=== PATIENT | male | born 1985 | race African-American/Black ===

== ENCOUNTER 2020-03-30 11:35 | Inpatient (IN) | payer SELFPAY ==
[2020-03-30] MEDS ORDERED: Enoxaparin Sodium 100 MG/ML SYRINGE ONE ×2 (11:53→11:55)
[2020-03-30] MEDS ORDERED: Enoxaparin Sodium 60 MG/0.6 ML SYRINGE ONE ×2 (11:53→11:55)
[2020-03-30] MEDS ORDERED: Digoxin 0.5 MG/2 ML AMP ONE (11:53)
[2020-03-30] MEDS ORDERED: Aspirin Chewable 81 MG TAB ONE (11:53)
[2020-03-30] MEDS ORDERED: Magnesium 2 GM/50 ML BAG (IN WATER) ONE (11:53)
--- NOTE | 2020-03-30 12:28 | RAD ---
PORTABLE CHEST: HISTORY: Syncopal episode. COMPARISON: Earlier exam of the same day. FINDINGS: Heart size is enlarged. Pulmonary vessels are mildly engorged, but no overt edema. IMPRESSION: Marked cardiomegaly. Stable chest. POS: AH
[2020-03-30 12:31] LABS: #Basophils 0.1 thou/uL (0.0-0.2); #Eosinphils 0.1 thou/uL (0.0-0.7); #Lymphocytes 3.3 thou/uL (1.20-3.40); #Monocytes 0.8 thou/uL (0.11-0.59); #Neutrophils 6.6 thou/uL (1.40-6.50); %Basophils 0.8 % (0.0-1.0); %Eosinophils 0.8 % (0.0-10.0); %Monocytes 7.6 % (0.0-10.0); %Neutrophils 60.8 % (42.0-75.0); Hemoglobin 14.1 g/dL (14.0-18.0); Mean Corpuscular HGB CONC 31.8 g/dL (32.0-36.0); Mean Corpuscular Hemoglobin 31.7 pg (27.0-31.0); Mean Corpuscular Volume 99.7 fL (78.0-98.0); Mean Platelet Volume 7.8 fL (7.4-10.4); Platelet Count 295 thou/uL (130-400); RBC Distribution Width 14.1 % (11.5-14.5); Red Blood Cell (RBC) Count 4.44 mill/uL (4.70-6.10); White Blood Cell (WBC) Count 10.8 thou/uL (4.8-10.8)
[2020-03-30 13:14] LABS: CKMB 1.5 ng/mL (0-6.6)
[2020-03-30 13:32] LABS: Anion Gap 21 mmol/L (10-20); BUN (Urea Nitrogen) 39 mg/dL (8.9-20.6); Calc. Creatinine Clearance 0 mL/min (70-130); Carbon Dioxide 24 mmol/L (22-29); Chloride 99 mmol/L (98-107); Potassium 5.1 mmol/L (3.5-5.1); Sodium 139 mmol/L (136-145)
[2020-03-30 13:33] LABS: ALT (SGPT) 11 U/L (8-55); AST (SGOT) 28 U/L (5-34); Albumin 3.9 g/dL (3.5-5.0); Alkaline Phosphatase 78 U/L (40-110); Bilirubin, Total 1.1 mg/dL (0.2-1.2); CK (CPK) 124 U/L (30-200); Calcium 8.8 mg/dL (7.8-10.44); Globulin 3.5 g/dL (2.4-3.5); Glucose 82 mg/dL (70-105); Lipase 32 U/L (8-78); Protein, Total 7.4 g/dL (6.0-8.3)
[2020-03-30] MEDS ORDERED: Senokot S 8.6-50 MG TAB PO PRN (14:48)
[2020-03-30] MEDS ORDERED: Bisacodyl 10 MG SUPP PR PRN (14:48)
[2020-03-30] MEDS ORDERED: Cepastat Lozenges 1 LOZ PO PRN (14:48)
[2020-03-30] MEDS ORDERED: Sodium Chloride 0.65% Nasal 44 ML BOT EA NARE PRN (14:48)
[2020-03-30] MEDS ORDERED: Zolpidem Tartrate 5 MG TAB PO PRN (14:48)
[2020-03-30] MEDS ORDERED: Acetaminophen 325 MG TAB PO PRN (14:48)
[2020-03-30] MEDS ORDERED: Loratadine 10 MG TAB PO PRN (14:48)
[2020-03-30] MEDS ORDERED: hydrALAZINE 20 MG/ML VIAL SLOW IVP PRN (14:48)
[2020-03-30] MEDS ORDERED: Guaifenesin DM 100-10/5 ML UDCUP PO PRN (14:48)
[2020-03-30] MEDS ORDERED: Metoclopramide HCl 10 MG/2 ML VIAL IVP PRN (14:48)
[2020-03-30] MEDS ORDERED: HYDROcodone/Acetaminophen 5/325 mg Tablet PO PRN (14:48)
[2020-03-30] MEDS ORDERED: Loperamide HCl 2 MG CAP PO PRN (14:48)
[2020-03-30] MEDS ORDERED: Calcium Carbonate 500 MG ChewTAB PO PRN (14:48)
--- NOTE | 2020-03-30 15:20 | HP ---
PRIMARY CARE PHYSICIAN: [facility] Call admission. REASON FOR ADMISSION: Transferred from [facility] for syncopal episode with atrial fibrillation with RVR. HISTORY OF PRESENT ILLNESS: A 34-year-old male, who has underlying history of chronic systolic heart failure, who went to [facility] for a syncopal episode. The patient reports that for last 3 to 4 days, he was experiencing dizziness and nausea whenever he was standing rapidly, the patient was also feeling sensation in his throat as he had something stuck in his throat. This morning when he was feeling this type of sensation, he tried to drink water and he vomited, subsequently he passed out. He was also having palpitation and dizziness. He denies any chest pain currently, he denies any shortness of breath, he does not have any previous history of atrial fibrillation, the patient has a diagnosis of systolic heart failure with EF 25%, the patient is following Cardiology, the patient is compliant with his medication. The patient was evaluated at [facility] and he was relatively having low blood pressure, he was treated with metoprolol tartrate and his rate was controlled, but his blood pressure was low, so in our emergency room, the patient was given digoxin. When I saw at that time, the patient's heart rate was variable, it was going from 90 to 120. At [facility], the patient was also given Zofran and IV fluid. PAST MEDICAL HISTORY: Chronic systolic heart failure, morbid obesity, hypertension. PAST SURGICAL HISTORY: Reviewed and negative. PAST PSYCHIATRIC HISTORY: Reviewed and negative. SOCIAL HISTORY: The patient lives at home with family, he drinks alcohol socially twice a month, he also smokes cigar daily about one pack per day, he is trying to quit, but has not quit yet. ALLERGIES: NO KNOWN DRUG ALLERGY. CURRENT HOME MEDICATIONS: 1. Lasix 40 mg twice daily. 2. Metoprolol 50 mg twice daily. 3. Albuterol inhaler as needed basis, we will start on 80 mg p.o. daily. EMERGENCY ROOM COURSE: The patient is given metoprolol 5 mg IV x3 doses, as well as Zofran and IV fluid at other emergency room and the patient is given digoxin in our emergency room. PHYSICAL EXAMINATION: VITAL SIGNS: Currently blood pressure 120/86, pulse 126 and irregular, respiratory rate 18, temperature 98.2, saturation 98% on room air. GENERAL: The patient is currently alert, awake, no acute distress. HEENT: Head; normocephalic, atraumatic. NECK: Supple. No JVD. No meningeal signs of irritation. LUNGS: Clear to auscultation without any obvious rhonchi or rales. CARDIAC: S1 and S2. Irregularly irregular, no murmur. No gallop. No rub. ABDOMEN: Morbid obesity limiting examination. No peritoneal sign, no guarding, no rigidity, no rebound. BACK: Unremarkable. No CVA tenderness. EXTREMITIES: Upper extremities, passive movement of all joints are normal. Lower extremity; bilateral lower extremity pitting edema 1+ noted. SKIN: No skin rash, chronic skin changes in lower extremity. PSYCHIATRIC: Normal affect. NEUROLOGIC: The patient is alert and oriented x3, cranial nerves all normal, motor and sensation within normal limits. PSYCHIATRIC: Normal affect. REVIEW OF SYSTEMS: All review of systems reviewed and negative except as mentioned in HPI. SIGNIFICANT LABORATORY DATA: EKG showing atrial fibrillation with RVR, chest x- ray showing cardiomegaly. CBC; WBC 10.0, hemoglobin 14.5, platelet 282. D-dimer 1.55. BMP; sodium 139, potassium 3.7, chloride 96, carbon dioxide 30, anion gap was 17, BUN 36, creatinine 2.17, glucose 96, calcium 9.2. LFT; AST 16, ALT 13, alkaline phosphatase 74, albumin 3.8. CK 124, CK-MB 1.9, troponin 0.103, BNP 857. ASSESSMENT/PLAN: 1. Atrial fibrillation with rapid ventricular response, the patient has new onset atrial fibrillation, the patient has underlying history of cardiomyopathy, the patient will need amiodarone drip given low blood pressure. We will consult Cardiology. We will start Lovenox 1 mg/kg subcu twice daily. We will check TSH. 2. Acute/chronic kidney failure. The patient has worsening of renal function. The patient has baseline chronic kidney disease stage 3, most likely cardiorenal syndrome, we will continue to monitor renal function. 3. Type 2 myocardial infarction, likely due to atrial fibrillation with rapid ventricular response, demand ischemia, we will do serial cardiac enzymes x3, will continue aspirin 325 mg p.o. daily. Check lipid profile tomorrow, continue Lipitor 40 mg p.o. at bedtime. 4. Chronic systolic heart failure with mild acute exacerbation, the patient will be monitored closely, will continue with Lasix 40 mg p.o. daily. Because of renal insufficiency, the patient is not a candidate for CYNTHIA inhibitor or ARB at this point, especially the patient has low blood pressure. If blood pressure permits, then we will resume Toprol-XL long-acting. 5. Morbid obesity with possible sleep apnea. The patient will need outpatient sleep study to rule out sleep apnea. 6. Morbid obesity. Dietary education given. Weight loss education given. 7. Deep venous thrombosis prophylaxis. The patient will be given full dose of Lovenox. 8. GI prophylaxis. Pepcid 20 mg p.o. twice daily. CODE STATUS: The patient is full code. DISPOSITION PLAN: Based on clinical course, plan of care discussed with the patient and family member at bedside. Job ID: [id number] MTDD
[2020-03-30 16:55] LABS: Troponin I 0.156 ng/mL (< 0.028)
[2020-03-30] MEDS: Amiodarone 450 MG in Dextrose 5% in Water 250 ML IVPB SCH (18:10)
[2020-03-30 19:29] LABS: Troponin I 0.151 ng/mL (< 0.028)
--- NOTE | 2020-03-30 19:59 | CON ---
DATE OF CONSULTATION: 03/30/2020 INDICATION FOR CONSULTATION: A 34-year-old patient with new onset atrial fibrillation with a history of congestive heart failure. HISTORY OF PRESENT ILLNESS: This is a very unfortunate 34-year-old gentleman who has been followed by Dr. Rush in the past, has a history of chronic systolic heart failure of uncertain etiology. He had significant volume overload, was being treated with diuretics and also Zaroxolyn was added. In the last several days, he has been complaining of lightheadedness and feeling somewhat nauseous. This morning, he became very nauseated, he threw up and then after that he had an episode of syncope, was out for just a couple of seconds. His then took him to the emergency room. He was transferred from the emergency room of [place] to our facility here. He does have a history of systolic heart failure with ejection fraction of 25% by echocardiogram performed in the office. Apparently, he has been very compliant with his medications. He was noted to be hypotensive in the emergency room and was given IV fluids. Originally, his blood pressure was 84/69. This time, it is in the low 100s to one teens systolically. His heart rate is in the 100s to one teens with atrial fibrillation. He denied any chest pain. His was close by when he fell. She heard him fall with a syncopal episode but did not actually witness this, but states he was only out for a couple of seconds. At this time, he is stable and has no symptoms. The nausea has improved. PAST MEDICAL HISTORY: Significant for congestive heart failure, which is chronic in nature systolically, morbid obesity, hypertension. SOCIAL HISTORY: He lives with his . He drinks alcohol socially about 2 to 3 times a month. He smokes cigars daily, he says about a pack a day. ALLERGIES: NONE. MEDICATIONS: Prior to admission included 1. Furosemide 40 mg b.i.d. 2. Metoprolol 50 mg twice a day. 3. Valsartan 80 mg once a day. 4. Metolazone 5 mg once a day. This has been held as he called the office yesterday, was suggested that he stop taking the medicine since he was hypotensive and felt badly. FAMILY HISTORY: His mother has hypertension. Father from cancer. REVIEW OF SYSTEMS: A 12-point review of systems was unremarkable except as noted in the history of present illness. PHYSICAL EXAMINATION: GENERAL: Well-developed gentleman. He is morbidly obese. VITAL SIGNS: His blood pressure at this time is 130/59, heart rate is in the one teens. He is afebrile. Respiratory rate 16, O2 saturation 95%. HEENT: Shows the head to be normocephalic and atraumatic. NECK: Carotid pulses are present. I did not hear any bruits. There was no JVD noted. CHEST: Sounds clear to auscultation. CARDIOVASCULAR: Irregularly irregular rhythm. Heart sounds are somewhat distant but he is a morbidly obese patient. I do not hear any gross murmurs, heaves, thrills, bruits, or rubs. ABDOMEN: Shows obesity. I cannot elicit any tenderness or masses. EXTREMITIES: Showed no clubbing. He does have 1 to 2+ lower extremity edema. Pedal pulses are difficult to palpate but are present. NEUROLOGIC: The patient appears to be fully intact. LABORATORY DATA: Shows a WBC of 10.8, hemoglobin 14.1, platelet count was 295,000. Sodium is 139 with a potassium of 5.1, BUN was 39 with a creatinine of 2.4. Troponin I was slightly elevated at 0.15. BNP was elevated at 765. Also EKG shows atrial fibrillation with a rapid ventricular response. There were no acute ST-segment changes noted to indicate ischemia. IMPRESSION: 1. New onset atrial fibrillation with rapid ventricular response, which most likely caused hypotension and thus a syncopal episode. We will need to control the heart rate. We will try to increase the beta-blockers or add digoxin if necessary to control the heart rate. 2. History of systolic heart failure. We will need to repeat the echocardiogram to determine whether or not the ejection fraction has deteriorated further. Certainly with atrial fibrillation, he may have deteriorated further. He may become a candidate for an AICD if his heart function is still significantly decreased. I believe his diagnosis was back in December of this year. I think he has not seen Dr. Rush in the office since then but has had a couple tele-med visits with him. Consider starting Entresto. 3. History of significant edema which is associated with his heart failure. He has been somewhat noncompliant with fluids in his diet in the last few days over the holiday season. 4. Slight elevation in the cardiac enzymes, which could indicate a type 2 myocardial infarction due to the heart failure and congestive heart failure, which would cause this. His BNP was significantly elevated at 765. 5. Morbid obesity with possible sleep apnea. He should be advised to try to have some dietary control and try to lose some weight. We are more than happy to continue to follow the patient with you. Also please note, he has acute renal insufficiency which may be due to over-diuresis. He may need to be started on inotropic support in order to diurese the patient. Further recommendations will depend on the results of the echocardiogram. Job ID: [id number] [facility]
[2020-03-30] MEDS ORDERED: Famotidine 20 MG TAB PO SCH (21:00)
[2020-03-30] MEDS: Enoxaparin Sodium 80 MG/0.8 ML SYRINGE SC SCH (21:09)
[2020-03-30] MEDS: Atorvastatin Calcium 40 MG TAB PO SCH (21:11)
[2020-03-30 21:28] LABS: SARS-CoV-2 MS2 Positive; SARS-CoV-2 N Gene Negative; SARS-CoV-2 S Gene Negative; SARS-CoV-2 by NAA Not Detected (NotDetected); SARS-CoV-2 orf1ab Negative
[2020-03-30 23:21] LABS: Bacteria/HPF None Seen HPF (None Seen); Bilirubin Negative (Negative); Blood, Urine Negative (Negative); Clarity Clear (Clear); Glucose, Urine (Dipstick) Normal (Negative); Ketone, Urine Negative (Negative); Leukocyte Negative Leu/uL (Negative); Nitrite Negative (Negative); Protein, Urine (Dipstick) 70 mg/dL (Neg-Trace); RBC/HPF 0-3 HPF (0-3); Specific Gravity, Urine 1.017 (1.002-1.036); Squamous Epithelial 0-3 HPF (0-3); Urobilinogen 3 mg/dL (Less than 2); WBC/HPF 0-3 HPF (0-3)
[2020-03-30 23:23] LABS: Urine Culture Reflex No No
[2020-03-30 23:26] LABS: Amphetamine Not Detected (NotDetected); Barbiturates Screen Not Detected (NotDetected); Benzodiazepine Screen Not Detected (NotDetected); Cocaine Metabolite Screen Not Detected (NotDetected); Medtox Control Line Valid? VALID (VALID); Medtox Reader # READER 1; Methadone Not Detected (NotDetected); Methamphetamine Not Detected (NotDetected); Opiate Screen Not Detected (NotDetected); Oxycodone Screen Not Detected (NotDetected); Phencyclidine (PCP) Not Detected (NotDetected); THC/Cannabinoid Screen Not Detected (NotDetected); Tricyclic Screen Not Detected (NotDetected)
[2020-03-31 05:04] LABS: ALT (SGPT) 8 U/L (8-55); AST (SGOT) 12 U/L (5-34); Albumin 3.7 g/dL (3.5-5.0); Alkaline Phosphatase 76 U/L (40-110); Anion Gap 15 mmol/L (10-20); BUN (Urea Nitrogen) 45 mg/dL (8.9-20.6); Bilirubin, Total 0.9 mg/dL (0.2-1.2); Calc. Creatinine Clearance 92 mL/min (70-130); Calcium 8.8 mg/dL (7.8-10.44); Carbon Dioxide 31 mmol/L (22-29); Cardiac Risk 3.8 (Less than 4.5); Chloride 97 mmol/L (98-107); Cholesterol 125 mg/dl (< 200 Desired); Globulin 3.3 g/dL (2.4-3.5); Glucose 96 mg/dL (70-105); HDL Cholesterol 33 mg/dL (>60 Neg Risk); LDL Cholesterol, Calculated 74 mg/dL; Magnesium 2.4 mg/dL (1.6-2.6); Potassium 3.9 mmol/L (3.5-5.1); Sodium 139 mmol/L (136-145); Triglycerides 88 mg/dL (Less than 150); Uric Acid 16.2 mg/dL (3.5-7.2)
[2020-03-31 05:42] LABS: Hemoglobin 13.7 g/dL (14.0-18.0); Mean Corpuscular HGB CONC 30.5 g/dL (32.0-36.0); Mean Corpuscular Hemoglobin 30.6 pg (27.0-31.0); Mean Platelet Volume 7.5 fL (7.4-10.4); Platelet Count 293 thou/uL (130-400); RBC Distribution Width 14.5 % (11.5-14.5); Red Blood Cell (RBC) Count 4.46 mill/uL (4.70-6.10); White Blood Cell (WBC) Count 9.4 thou/uL (4.8-10.8)
[2020-03-31 06:37] LABS: Eosinophils 1 % (0-10); Lymphocytes 33 % (21-51); MDiff Complete? YES; Monocytes 6 % (0-10); Neutrophil 57 % (42-75); Reactive Lymphocytes 3 % (0-10)
[2020-03-31] MEDS: Aspirin Chewable 81 MG TAB PO SCH (08:12)
[2020-03-31] MEDS: Enoxaparin Sodium 80 MG/0.8 ML SYRINGE SC SCH ×2 (08:12→21:13)
[2020-03-31] MEDS: Furosemide 40 MG TAB PO SCH (08:12)
[2020-03-31] MEDS: Allopurinol 100 MG TAB PO SCH (10:03)
--- NOTE | 2020-03-31 12:50 | PDOC.HOSPP ---
- Subjective Encounter Date: 03/31/20 Encounter Time: 08:00 Subjective: Patient seen and examined bedside today, patient has no chest pain, no shortness of breath, his heart rate is under control, he is on amiodarone drip, his blood pressure runs low side, - Objective Vital Signs & Weight: Vital Signs (12 hours) Temp Pulse Resp BP Pulse Ox 03/31/20 11:40 100/60 03/31/20 11:17 97.8 F 105 H 15 95 03/31/20 08:00 97.6 F 105 H 17 95/55 L 93 L 03/31/20 04:00 98.1 F 109 H 16 102/78 95 Weight Weight 358 lb Result Diagrams: 03/31/20 04:22 03/31/20 04:22 EKG Reviewed by me: Yes (Ankita canales) Hospitalist ROS - Review of Systems Constitutional: reports: weakness. denies: fever, chills, sweats, malaise, other ENT: denies: ear pain, ear discharge, nose pain, nose discharge, nose congestion, mouth pain, mouth swelling, throat pain, throat swelling, other Respiratory: denies: cough, dry, shortness of breath, hemoptysis, SOB with excertion, pleuritic pain, sputum, wheezing, other Cardiovascular: denies: chest pain, palpitations, orthopnea, paroxysmal noc. dyspnea, edema, light headedness, other Gastrointestinal: denies: nausea, vomiting, abdominal pain, diarrhea, constipation, melena, hematochezia, other Genitourinary: denies: dysuria, frequency, incontinence, hematuria, retention, other Musculoskeletal: denies: neck pain, shoulder pain, arm pain, back pain, hand pain, leg pain, foot pain, other Skin: denies: rash, lesions, karthikeyan, bruising, other - Medication Medications: Active Medications Generic Name Dose Route Start Last Admin Trade Name Freq PRN Reason Stop Dose Admin Acetaminophen 650 mg 03/30/20 14:48 03/30/20 21:11 Acetaminophen 325 Mg Tab PO 650 mg Q4H PRN Administration Headache/Fever/Mild Pain (1-3) Allopurinol 100 mg 03/31/20 09:00 03/31/20 10:03 Allopurinol 100 Mg Tab PO 100 mg DAILY CLINT Administration Aspirin 81 mg 03/31/20 09:00 03/31/20 08:12 Aspirin Chewable 81 Mg Tab PO 81 mg DAILY CLINT Administration Atorvastatin Calcium 40 mg 03/30/20 21:00 03/30/20 21:11 Atorvastatin Calcium 40 Mg Tab PO 40 mg HS CLINT Administration Enoxaparin Sodium 160 mg 03/30/20 21:00 03/31/20 08:12 Enoxaparin Sodium 80 Mg/0.8 Ml Syringe SC 160 mg 0900,2100 CLINT Administration Furosemide 40 mg 03/31/20 07:30 03/31/20 08:12 Furosemide 40 Mg Tab PO 40 mg DAILY-AC CLINT Administration Amiodarone HCl 450 mg/ 259 mls @ 0 mls/hr 03/30/20 14:48 03/30/20 18:10 Dextrose/Water IVPB 259 mls INF CLINT Administration Protocol Per Protocol Pantoprazole Sodium 40 mg 03/31/20 09:00 03/31/20 08:12 Pantoprazole 40 Mg Tab PO 40 mg DAILY CLINT Administration - Exam General Appearance: NAD, awake alert Eye: PERRL, anicteric sclera ENT: normocephalic atraumatic, no oropharyngeal lesions Neck: supple, symmetric, no JVD, no thyromegaly Heart: no murmur, no gallops, no rubs, irregular Respiratory: no wheezes, no rales, no ronchi Respiratory - other findings: Morbid obesity limiting examination Gastrointestinal: soft, non-tender, non-distended, normal bowel sounds Gastrointestinal - other findings: Morbid obesity noted Extremities: no cyanosis, no clubbing, 1+ LE edema Skin: normal turgor, no lesions Neurological: no focal deficits Musculoskeletal: normal tone, normal strength, no muscle wasting Psychiatric: normal affect, normal behavior, A&O x 3 Hosp A/P (1) Atrial fibrillation with rapid ventricular response Code(s): I48.91 - UNSPECIFIED ATRIAL FIBRILLATION Status: Acute (2) Acute on chronic systolic CHF (congestive heart failure) Code(s): I50.23 - ACUTE ON CHRONIC SYSTOLIC (CONGESTIVE) HEART FAILURE Status: Acute (3) Acute renal failure superimposed on chronic kidney disease Code(s): N17.9 - ACUTE KIDNEY FAILURE, UNSPECIFIED; N18.9 - CHRONIC KIDNEY DISEASE, UNSPECIFIED Status: Acute Qualifiers: Acute renal failure type: unspecified Chronic kidney disease stage: stage 3 (moderate) Chronic kidney disease stage 3 subtype: stage 3a (GFR 45-59) Qualified Code(s): N17.9 - Acute kidney failure, unspecified; N18.31 - Chronic kidney disease, stage 3a (4) Morbid obesity with BMI of 45.0-49.9, adult Code(s): E66.01 - MORBID (SEVERE) OBESITY DUE TO EXCESS CALORIES; Z68.42 - BODY MASS INDEX [BMI] 45.0-49.9, ADULT Status: Chronic (5) Hyperuricemia Code(s): E79.0 - HYPERURICEMIA W/O SIGNS OF INFLAM ARTHRIT AND TOPHACEOUS DIS Status: Chronic - Plan old records reviewed/req, plan discussed w/ family Continue amiodarone drip Patient's renal function is elevated which is related with cardiorenal syndrome Patient has low blood pressure so we are not able to prescribe ARB, and patient is allergic to CYNTHIA inhibitor Because of elevated uric acid we will start allopurinol 100 mg daily Echocardiography result is pending Cardiology following We will consider starting oral anticoagulation given high chads 2 score, continue Lovenox for now We will repeat labs tomorrow
[2020-03-31 15:10] VITALS: BMI 47.2
[2020-03-31] MEDS: DOBUTamine 500 mg/250 ml 250 ML IVPB SCH (17:59)
[2020-03-31] MEDS: Amiodarone 450 MG in Dextrose 5% in Water 250 ML IVPB SCH (18:31)
[2020-03-31] MEDS: Atorvastatin Calcium 40 MG TAB PO SCH (21:13)
[2020-04-01 04:45] LABS: #Basophils 0.1 thou/uL (0.0-0.2); #Eosinphils 0.1 thou/uL (0.0-0.7); #Lymphocytes 2.6 thou/uL (1.20-3.40); #Monocytes 0.7 thou/uL (0.11-0.59); #Neutrophils 6.5 thou/uL (1.40-6.50); %Basophils 1.3 % (0.0-1.0); %Eosinophils 0.7 % (0.0-10.0); %Lymphocytes 25.9 % (21.0-51.0); %Monocytes 7.3 % (0.0-10.0); %Neutrophils 64.8 % (42.0-75.0); Hemoglobin 12.9 g/dL (14.0-18.0); Mean Corpuscular HGB CONC 31.4 g/dL (32.0-36.0); Mean Corpuscular Hemoglobin 31.4 pg (27.0-31.0); Mean Platelet Volume 8.1 fL (7.4-10.4); Platelet Count 260 thou/uL (130-400); RBC Distribution Width 14.2 % (11.5-14.5)
[2020-04-01 05:07] LABS: Anion Gap 18 mmol/L (10-20); BUN (Urea Nitrogen) 45 mg/dL (8.9-20.6); Calc. Creatinine Clearance 109 mL/min (70-130); Calcium 8.8 mg/dL (7.8-10.44); Carbon Dioxide 28 mmol/L (22-29); Chloride 96 mmol/L (98-107); Glucose 81 mg/dL (70-105); Magnesium 2.4 mg/dL (1.6-2.6); Potassium 4.6 mmol/L (3.5-5.1); Sodium 137 mmol/L (136-145)
[2020-04-01] MEDS: Aspirin Chewable 81 MG TAB PO SCH (08:43)
[2020-04-01] MEDS: Furosemide 40 MG TAB PO SCH (08:43)
[2020-04-01] MEDS: Allopurinol 100 MG TAB PO SCH (08:43)
[2020-04-01] MEDS: Enoxaparin Sodium 80 MG/0.8 ML SYRINGE SC SCH ×2 (08:43→21:45)
[2020-04-01] MEDS: Amiodarone 450 MG in Dextrose 5% in Water 250 ML IVPB SCH (09:40)
--- NOTE | 2020-04-01 10:08 | PDOC.HOSPP ---
- Subjective Encounter Date: 04/01/20 Encounter Time: 08:30 Subjective: Patient seen and examined bedside today, patient has good diuretic response after starting dobutamine drip, patient has recurrent episode of NSVT though patient remains asymptomatic, - Objective Vital Signs & Weight: Vital Signs (12 hours) Temp Pulse Resp BP BP Pulse Ox 04/01/20 07:49 97.3 F L 98 17 120/80 96 04/01/20 05:45 98 04/01/20 04:05 122/80 04/01/20 04:00 97.7 F 100 14 98 04/01/20 00:00 132/78 Weight Admit Weight 357 lb Weight 357 lb Result Diagrams: 04/01/20 03:44 04/01/20 03:44 Radiology Reviewed by me: Yes (Echocardiography showed EF less than 10%) EKG Reviewed by me: Yes (Recurrent episode of NSVT noted) Hospitalist ROS - Review of Systems Constitutional: reports: weakness Respiratory: reports: shortness of breath. denies: cough, dry, hemoptysis, SOB with excertion, pleuritic pain, sputum, wheezing, other Cardiovascular: denies: chest pain, palpitations, orthopnea, paroxysmal noc. dyspnea, edema, light headedness, other Gastrointestinal: denies: nausea, vomiting, abdominal pain, diarrhea, constipation, melena, hematochezia, other Genitourinary: denies: dysuria, frequency, incontinence, hematuria, retention, other Musculoskeletal: denies: neck pain, shoulder pain, arm pain, back pain, hand pain, leg pain, foot pain, other Skin: denies: rash, lesions, karthikeyan, bruising, other - Medication Medications: Active Medications Generic Name Dose Route Start Last Admin Trade Name Freq PRN Reason Stop Dose Admin Acetaminophen 650 mg 03/30/20 14:48 03/30/20 21:11 Acetaminophen 325 Mg Tab PO 650 mg Q4H PRN Administration Headache/Fever/Mild Pain (1-3) Allopurinol 100 mg 03/31/20 09:00 04/01/20 08:43 Allopurinol 100 Mg Tab PO 100 mg DAILY CLINT Administration Aspirin 81 mg 03/31/20 09:00 04/01/20 08:43 Aspirin Chewable 81 Mg Tab PO 81 mg DAILY CLINT Administration Atorvastatin Calcium 40 mg 03/30/20 21:00 03/31/20 21:13 Atorvastatin Calcium 40 Mg Tab PO 40 mg HS CLINT Administration Calcium Carbonate 1,000 mg 03/30/20 14:48 04/01/20 03:39 Calcium Carbonate 500 Mg Chewtab PO 1,000 mg Q4H PRN Administration Heartburn or Indigestion Enoxaparin Sodium 160 mg 03/30/20 21:00 04/01/20 08:43 Enoxaparin Sodium 80 Mg/0.8 Ml Syringe SC 160 mg 0900,2100 CLINT Administration Furosemide 40 mg 03/31/20 07:30 04/01/20 08:43 Furosemide 40 Mg Tab PO 40 mg DAILY-AC CLINT Administration Amiodarone HCl 450 mg/ 259 mls @ 0 mls/hr 03/30/20 14:48 04/01/20 09:40 Dextrose/Water IVPB 259 mls INF CLINT Administration Protocol Per Protocol Dobutamine HCl/Dextrose 250 mls @ 12.179 mls/hr 03/31/20 17:15 03/31/20 17:59 Dobutamine 500 Mg/250 Ml IVPB 250 mls INF CLINT Administration Protocol 2.5 MCG/KG/MIN Pantoprazole Sodium 40 mg 03/31/20 09:00 04/01/20 08:43 Pantoprazole 40 Mg Tab PO 40 mg DAILY CLINT Administration - Exam General Appearance: NAD, awake alert Eye: PERRL, anicteric sclera ENT: normocephalic atraumatic, no oropharyngeal lesions Neck: symmetric, no thyromegaly Heart: no murmur, no gallops, no rubs, irregular Respiratory: no wheezes, no rales, no ronchi Respiratory - other findings: Morbid obesity limiting examination Gastrointestinal: soft, non-tender, non-distended, normal bowel sounds Extremities: no clubbing, 1+ LE edema Skin: normal turgor, no lesions Neurological: no focal deficits Musculoskeletal: normal tone, normal strength Psychiatric: normal affect, normal behavior Hosp A/P (1) Atrial fibrillation with rapid ventricular response Code(s): I48.91 - UNSPECIFIED ATRIAL FIBRILLATION Status: Acute (2) Acute on chronic systolic CHF (congestive heart failure) Code(s): I50.23 - ACUTE ON CHRONIC SYSTOLIC (CONGESTIVE) HEART FAILURE Status: Acute (3) Acute renal failure superimposed on chronic kidney disease Code(s): N17.9 - ACUTE KIDNEY FAILURE, UNSPECIFIED; N18.9 - CHRONIC KIDNEY DISEASE, UNSPECIFIED Status: Acute Qualifiers: Acute renal failure type: unspecified Chronic kidney disease stage: stage 3 (moderate) Chronic kidney disease stage 3 subtype: stage 3a (GFR 45-59) Qualified Code(s): N17.9 - Acute kidney failure, unspecified; N18.31 - Chronic kidney disease, stage 3a (4) Morbid obesity with BMI of 45.0-49.9, adult Code(s): E66.01 - MORBID (SEVERE) OBESITY DUE TO EXCESS CALORIES; Z68.42 - BODY MASS INDEX [BMI] 45.0-49.9, ADULT Status: Chronic (5) Hyperuricemia Code(s): E79.0 - HYPERURICEMIA W/O SIGNS OF INFLAM ARTHRIT AND TOPHACEOUS DIS Status: Chronic (6) NSVT (nonsustained ventricular tachycardia) Code(s): I47.2 - VENTRICULAR TACHYCARDIA Status: Acute - Plan old records reviewed/req, plan discussed w/ family Continue amiodarone drip Patient is on dobutamine drip started by cardiology, Renal function is improving Patient has recurrent NSVT and the patient is asymptomatic, electrophysiology has been consulted, given his low EF patient will benefit from BiV pacemaker Medication reviewed and continue provide symptomatic and supportive care Discussed with the family member and the plan of care updated to them as well, Repeat labs tomorrow
[2020-04-01] MEDS: DOBUTamine 500 mg/250 ml 250 ML IVPB SCH (12:00)
--- NOTE | 2020-04-01 15:23 | EKG ---
Test Reason : AFIB REPEAT Blood Pressure : / mmHG Vent. Rate : 106 BPM Atrial Rate : 241 BPM P-R Int : 000 ms QRS Dur : 120 ms QT Int : 382 ms P-R-T Axes : 000 162 -21 degrees QTc Int : 507 ms Atrial fibrillation with rapid ventricular response with premature ventricular or aberrantly conducte d complexes Right axis deviation Anteroseptal infarct , age undetermined Abnormal ECG #2 Confirmed by WILIAN WHITT, GODFREY ([id number]), scientific editor DOUG KEBEDE ([id number]) on 04/01/2020 3:23:08 PM Referred By: WILIAN Confirmed By:GODFREY CEDENO MD
--- NOTE | 2020-04-01 15:23 | EKG ---
Test Reason : TACHYCARDIA Blood Pressure : / mmHG Vent. Rate : 157 BPM Atrial Rate : 141 BPM P-R Int : 000 ms QRS Dur : 108 ms QT Int : 302 ms P-R-T Axes : 000 -58 107 degrees QTc Int : 488 ms Atrial fibrillation with rapid ventricular response with premature ventricular or aberrantly conducte d complexes Left axis deviation Septal infarct , age undetermined Abnormal ECG Confirmed by WILIAN WHITT, GODFREY ([id number]), electronic news gathering editor DOUG KEBEDE ([id number]) on 04/01/2020 3:22:59 PM Referred By: Confirmed By:GODFREY CEDENO MD
[2020-04-01] MEDS: Atorvastatin Calcium 40 MG TAB PO SCH (21:45)
[2020-04-02 04:11] LABS: #Basophils 0.1 thou/uL (0.0-0.2); #Eosinphils 0.1 thou/uL (0.0-0.7); #Monocytes 0.8 thou/uL (0.11-0.59); #Neutrophils 5.3 thou/uL (1.40-6.50); %Basophils 0.6 % (0.0-1.0); %Eosinophils 1.5 % (0.0-10.0); %Lymphocytes 32.6 % (21.0-51.0); %Neutrophils 56.4 % (42.0-75.0); Hemoglobin 12.8 g/dL (14.0-18.0); Mean Corpuscular HGB CONC 31.7 g/dL (32.0-36.0); Mean Corpuscular Hemoglobin 31.6 pg (27.0-31.0); Mean Corpuscular Volume 99.8 fL (78.0-98.0); Mean Platelet Volume 7.6 fL (7.4-10.4); Platelet Count 262 thou/uL (130-400); RBC Distribution Width 14.1 % (11.5-14.5); Red Blood Cell (RBC) Count 4.05 mill/uL (4.70-6.10); White Blood Cell (WBC) Count 9.3 thou/uL (4.8-10.8)
[2020-04-02 04:21] LABS: INR-International Normal Ratio 1.2; PTT 45.9 sec (22.9-36.1); Prothrombin Time 15.3 sec (12.0-14.7)
[2020-04-02 04:31] LABS: Anion Gap 16 mmol/L (10-20); BUN (Urea Nitrogen) 31 mg/dL (8.9-20.6); Calc. Creatinine Clearance 145 mL/min (70-130); Calcium 9.1 mg/dL (7.8-10.44); Carbon Dioxide 30 mmol/L (22-29); Chloride 96 mmol/L (98-107); Glucose 81 mg/dL (70-105); Magnesium 2.1 mg/dL (1.6-2.6); Potassium 3.5 mmol/L (3.5-5.1); Sodium 138 mmol/L (136-145)
[2020-04-02] MEDS: DOBUTamine 500 mg/250 ml 250 ML IVPB SCH (07:53)
[2020-04-02] MEDS: Cyanocobalamin (Vitamin B-12) 1,000 MCG TAB PO SCH (08:35)
[2020-04-02] MEDS: Folic Acid 1 MG TAB PO SCH (08:35)
[2020-04-02] MEDS: Enoxaparin Sodium 80 MG/0.8 ML SYRINGE SC SCH ×2 (08:36→21:24)
[2020-04-02] MEDS: Furosemide 40 MG TAB PO SCH (08:36)
[2020-04-02] MEDS: Aspirin Chewable 81 MG TAB PO SCH (08:36)
[2020-04-02] MEDS ORDERED: Digoxin 0.25 MG TAB PO SCH (09:00)
[2020-04-02] MEDS: Allopurinol 100 MG TAB PO SCH (09:17)
--- NOTE | 2020-04-02 10:42 | PDOC.HOSPP ---
- Subjective Encounter Date: 04/02/20 Encounter Time: 09:15 Subjective: Patient seen and examined bedside today, patient's renal function continued to improve, patient is on room air, he has no new complaint, he is on dobutamine and amiodarone drip, he intermittently gets A. fib with RVR - Objective Vital Signs & Weight: Vital Signs (12 hours) Temp Pulse Resp BP Pulse Ox 04/02/20 07:41 98.0 F 102 H 17 136/92 H 95 04/02/20 04:00 98.6 F 130 H 16 128/88 96 04/02/20 00:00 122/78 Weight Admit Weight 357 lb Weight 347 lb 11.2 oz I&O: 04/01/20 04/02/20 04/03/20 06:59 06:59 06:59 Intake Total 1580 Output Total 750 Balance 830 Result Diagrams: 04/02/20 03:30 04/02/20 03:30 EKG Reviewed by me: Yes (Atrial fibrillation) Hospitalist ROS - Review of Systems ENT: denies: ear pain, ear discharge, nose pain, nose discharge, nose congestion, mouth pain, mouth swelling, throat pain, throat swelling, other Respiratory: denies: cough, dry, shortness of breath, hemoptysis, SOB with excertion, pleuritic pain, sputum, wheezing, other Cardiovascular: denies: chest pain, palpitations, orthopnea, paroxysmal noc. dyspnea, edema, light headedness, other Gastrointestinal: denies: nausea, vomiting, abdominal pain, diarrhea, constipation, melena, hematochezia, other Genitourinary: denies: dysuria, frequency, incontinence, hematuria, retention, other Musculoskeletal: denies: neck pain, shoulder pain, arm pain, back pain, hand pain, leg pain, foot pain, other - Medication Medications: Active Medications Generic Name Dose Route Start Last Admin Trade Name Freq PRN Reason Stop Dose Admin Acetaminophen 650 mg 03/30/20 14:48 03/30/20 21:11 Acetaminophen 325 Mg Tab PO 650 mg Q4H PRN Administration Headache/Fever/Mild Pain (1-3) Allopurinol 100 mg 03/31/20 09:00 04/02/20 09:17 Allopurinol 100 Mg Tab PO 100 mg DAILY [facility] Administration Aspirin 81 mg 03/31/20 09:00 04/02/20 08:36 Aspirin Chewable 81 Mg Tab PO 81 mg DAILY [facility] Administration Atorvastatin Calcium 40 mg 03/30/20 21:00 04/01/20 21:45 Atorvastatin Calcium 40 Mg Tab PO 40 mg HS [facility] Administration Calcium Carbonate 1,000 mg 03/30/20 14:48 04/01/20 03:39 Calcium Carbonate 500 Mg Chewtab PO 1,000 mg Q4H PRN Administration Heartburn or Indigestion Cyanocobalamin 1,000 mcg 04/02/20 09:00 04/02/20 08:35 Cyanocobalamin (Vitamin B-12) 1,000 Mcg Tab PO 1,000 mcg DAILY [facility] Administration Digoxin 0.25 mg 04/02/20 09:00 04/02/20 08:35 Digoxin 0.25 Mg Tab PO 0.25 mg DAILY [facility] Administration Enoxaparin Sodium 160 mg 03/30/20 21:00 04/02/20 08:36 Enoxaparin Sodium 80 Mg/0.8 Ml Syringe SC 160 mg 0900,2100 [facility] Administration Folic Acid 1 mg 04/02/20 09:00 04/02/20 08:35 Folic Acid 1 Mg Tab PO 1 mg DAILY [facility] Administration Furosemide 40 mg 03/31/20 07:30 04/02/20 08:36 Furosemide 40 Mg Tab PO 40 mg DAILY-AC [facility] Administration Amiodarone HCl 450 mg/ 259 mls @ 0 mls/hr 03/30/20 14:48 04/01/20 09:40 Dextrose/Water IVPB 259 mls INF [facility] Administration Protocol Per Protocol Dobutamine HCl/Dextrose 250 mls @ 12.179 mls/hr 03/31/20 17:15 04/02/20 07:53 Dobutamine 500 Mg/250 Ml IVPB 250 mls INF [facility] Administration Protocol 2.5 MCG/KG/MIN Pantoprazole Sodium 40 mg 03/31/20 09:00 04/02/20 08:36 Pantoprazole 40 Mg Tab PO 40 mg DAILY [facility] Administration - Exam General Appearance: NAD, awake alert Eye: PERRL, anicteric sclera ENT: normocephalic atraumatic, no oropharyngeal lesions Neck: supple, symmetric, no JVD, no thyromegaly Heart: no murmur, no gallops, no rubs, irregular Respiratory: CTAB, no wheezes, no rales, no ronchi Gastrointestinal: soft, non-tender, non-distended, normal bowel sounds Gastrointestinal - other findings: Morbid obesity limiting examination Extremities: no clubbing, 1+ LE edema Skin: normal turgor, no lesions Neurological: no focal deficits Musculoskeletal: normal tone, normal strength Psychiatric: normal affect, normal behavior, A&O x 3 Hosp A/P (1) Atrial fibrillation with rapid ventricular response Code(s): I48.91 - UNSPECIFIED ATRIAL FIBRILLATION Status: Acute (2) Acute on chronic systolic CHF (congestive heart failure) Code(s): I50.23 - ACUTE ON CHRONIC SYSTOLIC (CONGESTIVE) HEART FAILURE Status: Acute (3) Acute renal failure superimposed on chronic kidney disease Code(s): N17.9 - ACUTE KIDNEY FAILURE, UNSPECIFIED; N18.9 - CHRONIC KIDNEY DISEASE, UNSPECIFIED Status: Acute Qualifiers: Acute renal failure type: unspecified Chronic kidney disease stage: stage 3 (moderate) Chronic kidney disease stage 3 subtype: stage 3a (GFR 45-59) Qualified Code(s): N17.9 - Acute kidney failure, unspecified; N18.31 - Chronic kidney disease, stage 3a (4) Morbid obesity with BMI of 45.0-49.9, adult Code(s): E66.01 - MORBID (SEVERE) OBESITY DUE TO EXCESS CALORIES; Z68.42 - BODY MASS INDEX [BMI] 45.0-49.9, ADULT Status: Chronic (5) Hyperuricemia Code(s): E79.0 - HYPERURICEMIA W/O SIGNS OF INFLAM ARTHRIT AND TOPHACEOUS DIS Status: Chronic (6) NSVT (nonsustained ventricular tachycardia) Code(s): I47.2 - VENTRICULAR TACHYCARDIA Status: Acute - Plan old records reviewed/req Continue amiodarone drip, patient gets intermittent RVR so we will add digoxin Patient is on dobutamine drip, patient has good diuretic response Renal function improving Patient has recurrent NSVT and the patient is asymptomatic, electrophysiology has been consulted, given his low EF patient will benefit from BiV pacemaker Medication reviewed and continue provide symptomatic and supportive care Tonight we will hold night dose of Lovenox as well as tomorrow morning and we will keep him n.p.o. after midnight in case patient will need BiV pacemaker procedure tomorrow
--- NOTE | 2020-04-02 14:46 | PRG ---
DATE OF SERVICE: 04/02/2020 SUBJECTIVE: Mr. Neumann is doing better today. His breathing was improved. OBJECTIVE: VITAL SIGNS: Blood pressure is 124/86, pulse 100 and it is irregular. LUNGS: Clear. CARDIAC: Irregularly irregular. ABDOMEN: Obese, nontender. EXTREMITIES: No clubbing or cyanosis. There is moderate edema. LABORATORY DATA: Hemoglobin is 12.8. Creatinine was improved down to 1.6. ASSESSMENT: 1. Congestive heart failure. Dilated cardiomyopathy. 2. Atrial fibrillation, chronic, persistent. 3. Renal failure, improving. Creatinine is down to 1.6. PLAN: 1. Change to oral amiodarone. 2. Stop digoxin. 3. Tentatively plan for transesophageal echo and cardioversion on Friday. 4. Replete potassium. Job ID: [id number]
[2020-04-02] MEDS: Amiodarone 200 MG TAB PO SCH ×2 (15:37→21:23)
[2020-04-02] MEDS: Amiodarone 450 MG in Dextrose 5% in Water 250 ML IVPB SCH (16:15)
[2020-04-02] MEDS ORDERED: Potassium Chloride 20 MEQ TAB PO SCH (17:00)
[2020-04-02] MEDS: Atorvastatin Calcium 40 MG TAB PO SCH (21:23)
[2020-04-03] MEDS: DOBUTamine 500 mg/250 ml 250 ML IVPB SCH (04:40)
[2020-04-03 04:54] LABS: Anion Gap 12 mmol/L (10-20); BUN (Urea Nitrogen) 24 mg/dL (8.9-20.6); Calc. Creatinine Clearance 153 mL/min (70-130); Calcium 9.1 mg/dL (7.8-10.44); Carbon Dioxide 34 mmol/L (22-29); Chloride 97 mmol/L (98-107); Glucose 82 mg/dL (70-105); Potassium 3.8 mmol/L (3.5-5.1); Sodium 139 mmol/L (136-145)
[2020-04-03] MEDS: Cyanocobalamin (Vitamin B-12) 1,000 MCG TAB PO SCH (08:44)
[2020-04-03] MEDS: Amiodarone 200 MG TAB PO SCH ×3 (08:44→22:07)
[2020-04-03] MEDS: Aspirin Chewable 81 MG TAB PO SCH (08:44)
[2020-04-03] MEDS: Allopurinol 100 MG TAB PO SCH (08:44)
[2020-04-03] MEDS: Enoxaparin Sodium 80 MG/0.8 ML SYRINGE SC SCH ×4 (08:44→22:08)
[2020-04-03] MEDS: Folic Acid 1 MG TAB PO SCH (08:44)
[2020-04-03] MEDS: Furosemide 40 MG TAB PO SCH ×2 (08:44→13:44)
--- NOTE | 2020-04-03 11:47 | PDOC.HOSPP ---
- Subjective Encounter Date: 04/03/20 Subjective: doing well, in no acute distress. - Objective Vital Signs & Weight: Vital Signs (12 hours) Temp Pulse Resp BP Pulse Ox 04/03/20 11:42 98.4 F 98 16 142/76 H 96 04/03/20 07:53 97.7 F 86 16 156/94 H 95 04/03/20 03:57 98.0 F 89 18 170/90 H 04/03/20 00:00 140/80 Weight Admit Weight 357 lb Weight 347 lb 11.2 oz I&O: 04/02/20 04/03/20 04/04/20 06:59 06:59 06:59 Intake Total 1580 720 Output Total 750 Balance 830 720 Result Diagrams: 04/02/20 03:30 04/03/20 03:58 Hospitalist ROS - Medication Medications: Active Medications Generic Name Dose Route Start Last Admin Trade Name Freq PRN Reason Stop Dose Admin Acetaminophen 650 mg 03/30/20 14:48 03/30/20 21:11 Acetaminophen 325 Mg Tab PO 650 mg Q4H PRN Administration Headache/Fever/Mild Pain (1-3) Allopurinol 100 mg 03/31/20 09:00 04/03/20 08:44 Allopurinol 100 Mg Tab PO 100 mg DAILY [facility] Administration Amiodarone HCl 400 mg 04/02/20 15:00 04/03/20 08:44 Amiodarone 200 Mg Tab PO 400 mg TID [facility] Administration Aspirin 81 mg 03/31/20 09:00 04/03/20 08:44 Aspirin Chewable 81 Mg Tab PO 81 mg DAILY [facility] Administration Atorvastatin Calcium 40 mg 03/30/20 21:00 04/02/20 21:23 Atorvastatin Calcium 40 Mg Tab PO 40 mg HS [facility] Administration Calcium Carbonate 1,000 mg 03/30/20 14:48 04/01/20 03:39 Calcium Carbonate 500 Mg Chewtab PO 1,000 mg Q4H PRN Administration Heartburn or Indigestion Cyanocobalamin 1,000 mcg 04/02/20 09:00 04/03/20 08:44 Cyanocobalamin (Vitamin B-12) 1,000 Mcg Tab PO 1,000 mcg DAILY [facility] Administration Enoxaparin Sodium 160 mg 03/30/20 21:00 04/03/20 08:55 Enoxaparin Sodium 80 Mg/0.8 Ml Syringe SC Not Given 0900,2100 [facility] Folic Acid 1 mg 04/02/20 09:00 04/03/20 08:44 Folic Acid 1 Mg Tab PO 1 mg DAILY [facility] Administration Furosemide 40 mg 03/31/20 07:30 04/03/20 08:44 Furosemide 40 Mg Tab PO 40 mg DAILY-AC [facility] Administration Dobutamine HCl/Dextrose 250 mls @ 12.179 mls/hr 03/31/20 17:15 04/03/20 04:40 Dobutamine 500 Mg/250 Ml IVPB 250 mls INF [facility] Administration Protocol 2.5 MCG/KG/MIN Pantoprazole Sodium 40 mg 03/31/20 09:00 04/03/20 08:44 Pantoprazole 40 Mg Tab PO 40 mg DAILY [facility] Administration - Exam Eye: PERRL ENT: normocephalic atraumatic Neck: supple Heart: RRR, no murmur Gastrointestinal: soft, non-tender Hosp A/P (1) Acute on chronic systolic CHF (congestive heart failure) Code(s): I50.23 - ACUTE ON CHRONIC SYSTOLIC (CONGESTIVE) HEART FAILURE Status: Acute (2) Acute renal failure superimposed on chronic kidney disease Code(s): N17.9 - ACUTE KIDNEY FAILURE, UNSPECIFIED; N18.9 - CHRONIC KIDNEY DISEASE, UNSPECIFIED Status: Acute Qualifiers: Acute renal failure type: unspecified Chronic kidney disease stage: stage 3 (moderate) Chronic kidney disease stage 3 subtype: stage 3a (GFR 45-59) Qualified Code(s): N17.9 - Acute kidney failure, unspecified; N18.31 - Chronic kidney disease, stage 3a (3) Atrial fibrillation with rapid ventricular response Code(s): I48.91 - UNSPECIFIED ATRIAL FIBRILLATION Status: Acute (4) NSVT (nonsustained ventricular tachycardia) Code(s): I47.2 - VENTRICULAR TACHYCARDIA Status: Acute (5) Hyperuricemia Code(s): E79.0 - HYPERURICEMIA W/O SIGNS OF INFLAM ARTHRIT AND TOPHACEOUS DIS Status: Chronic (6) Morbid obesity with BMI of 45.0-49.9, adult Code(s): E66.01 - MORBID (SEVERE) OBESITY DUE TO EXCESS CALORIES; Z68.42 - BODY MASS INDEX [BMI] 45.0-49.9, ADULT Status: Chronic - Plan patient appears well. Awaiting EP consult for further recommendation 9 they were recalled today) Follow-up cardiology recommendations. Resume Lovenox since no procedure is planned for him today. resume diet. Repeats labs in am.
[2020-04-03] MEDS ORDERED: Potassium Chloride 20 MEQ TAB PO SCH (13:45)
--- NOTE | 2020-04-03 13:55 | PRG ---
DATE OF SERVICE: SUBJECTIVE: Mr. Neumann is feeling fine. He is not having any chest pain or pressure. He is still volume overloaded. OBJECTIVE: VITAL SIGNS: His blood pressure 142/76; pulse is in the 90 range, it is irregular. ABDOMEN: Obese, nontender. EXTREMITIES: Moderate edema. PERTINENT LABORATORY DATA: His creatinine continues to improve down to 1.49, potassium is 3.8. CONCLUSION: 1. Idiopathic-dilated cardiomyopathy. 2. Atrial fibrillation with some intermittent atrial flutter and also nonsustained ventricular tachycardia. PLAN: 1. He is being loaded with amiodarone. 2. Start Entresto. He is taking valsartan as an outpatient, but has not been on any CYNTHIA inhibitors. 3. Carvedilol. 4. Proceed to transesophageal echo and cardioversion tomorrow. Discussed risks including stroke, also other risk of slow heart rate. Need for pacemaker insertion, to be arranged for tomorrow. Also start Entresto. Hopefully, the patient could be released home likely on Friday. He still has a low ejection fraction after 3 months of therapy, consideration for defibrillator implantation. Job ID: [id number]
[2020-04-03] MEDS ORDERED: Carvedilol 6.25 MG TAB PO SCH (17:00)
--- NOTE | 2020-04-03 17:31 | CON ---
DATE OF CONSULTATION: 04/03/2020 HISTORY OF PRESENT ILLNESS: I am seeing Mr. Neumann at our [facility] telemetry floor for electrophysiology consultation. His problems are, 1. Acute newly found systolic congestive heart failure and likely nonischemic cardiomyopathy. a. Severely reduced LVEF at less than 10% on 2D echo from 03/31/2020 with moderate biatrial enlargement, mild TR, and decreased RV systolic function as well. 2. Newly found persisting atrial fibrillation with rapid ventricular rates. 3. Morbid obesity. 4. History of hypertension. 5. Type 2 diabetes. 6. History of smoking. ALLERGIES: LISINOPRIL. MEDICATIONS: At home include, 1. Metformin. 2. Valsartan. 3. Furosamide. SUBJECTIVE: Mr. Neumann was admitted on March 30 with progressive dyspnea and severe fluid overload. He was noted to be in atrial fibrillation, also had noted increasing nausea and dizziness on standing up too rapid. He had typical neck sensation and has thrown up after trying to drink some water, which made him pass out. He does feel palpitations and dizziness on admission. He has no fever, chills, or cough. No stroke-like symptoms or bleeding issues are noted. He does have PND and orthopnea. Rest of 12-point review of systems is otherwise unremarkable. PAST MEDICAL HISTORY: As above. The patient has seen Dr. Rush in January and even then, LVEF was in the 25% range. He had prior ER visit at [place] for elevated blood pressure and possible heart failure like symptoms. At that point, his heart rates were still normal. He has no prior atrial fibrillation by history. SOCIAL HISTORY: The patient used to work in [employer], truck assembler. Smokes cigars one pack per day and drinks alcohol socially. FAMILY HISTORY: Significant for hypertension for mother. Father from cancer. OBJECTIVE: VITAL SIGNS: Blood pressure 150/78, heart rate 89, respiratory rate is 18, temperature 98.4 degrees Fahrenheit. GENERAL: Reveals an alert and oriented man with elevated BMI, in no apparent distress. NECK: Supple. Jugular veins are still distended. Hepatojugular reflux is positive. CHEST: Coarse without crackles. HEART: Sounds are irregularly irregular. S1 and S2 are variable. No murmur or gallop. ABDOMEN: Benign. Bowel sounds positive. EXTREMITIES: Lower extremities without edema, clubbing, or cyanosis. Pulses are adequate. NEUROLOGIC: The patient is nonfocal. MUSCULOSKELETAL: Without joint swelling or deformity. SKIN: Without rash. DATABASE: EKG reviewed revealing atrial fibrillation with rates of 106 beats per minute. QRS duration 120 milliseconds. Subsequent EKG shows QRS duration 108 milliseconds, heart rates of 157 beats per minute, QTc is 458, left axis deviation is seen. Subsequent telemetry strips reveal ongoing atrial fibrillation and short wide-complex arrhythmia runs to 4 beats. In a 10-second duration, ventricular wide-complex arrhythmia run was also noted on 03/30. Since then, no significant ventricular arrhythmia events are seen, but the atrial fibrillation is still suboptimally controlled. LABORATORY DATA: White cell count is 9.3, hemoglobin 12.8, platelet count is 262. Sodium 139, potassium 3.8, BUN is 24, creatinine 1.49. BNP is 765. The troponin was 0.151 initially. Chest x-ray from 03/30 shows marked cardiomegaly and stable chest. ASSESSMENT AND PLAN: Mr. Neumann is a pleasant 34-year-old man with prior history of hypertension, obesity, type 2 diabetes, who was admitted with heart failure exacerbation and newly found atrial fibrillation with rapid rates. He has been treated with amiodarone and diuretics with improving symptoms, but continues to be in atrial fibrillation. He had some nonsustained wide-complex arrhythmia runs, which seems to be subsiding now and he is planned to undergo a transesophageal echocardiogram cardioversion tomorrow. My plans are, 1. Regarding his - likely nonischemic- cardiomyopathy, His LVEF was reportedly severely reduced on an outpt ECHO in January last year. On the other hand, he has been on suboptimal treatment from the heart failure standpoint only with the valsartan on board. His atrial fibrillation likely further worsened his LVEF . With amiodarone, beta deepak therapy on board and possible planned cardioversion could help his heart LVEF to improve. 2. If LVEF does not improve with optimal therapy within the next 3 months, ICD implantation could be considered. He may benefit from a LifeVest use in the interim. 3. Newly found atrial fibrillation, currently treated with amiodarone. We discussed the pros and cons of this understanding the potential amiodarone toxicity issues as well. On the other hand, with combination of heart failure exacerbation with atrial fibrillation with rapid ventricular rate, it would require us to use the most potent medication, which is indeed amiodarone currently. Should that fail, AV ameean ablation vs pulmonary venous isolation could be a consideration, although he is not a candidate for these options just yet. 5. We will discuss with Dr. Negro and follow up with him after his DAVID cardioversion tomorrow. 6. Elevated CHADS-VASc score with heart failure, hypertension, and diabetes at 3, likely a reasonable candidate for oral anticoagulation on discharge. 7. Smoking cessation and weight loss strongly recommended. Job ID: [id number] EBEN
[2020-04-03] MEDS: Carvedilol 3.125 MG TAB PO SCH (17:37)
[2020-04-03] MEDS: Atorvastatin Calcium 40 MG TAB PO SCH (22:07)
[2020-04-04 04:04] LABS: #Basophils 0.1 thou/uL (0.0-0.2); #Eosinphils 0.1 thou/uL (0.0-0.7); #Lymphocytes 2.5 thou/uL (1.20-3.40); #Monocytes 1.1 thou/uL (0.11-0.59); %Basophils 0.8 % (0.0-1.0); %Eosinophils 1.4 % (0.0-10.0); %Lymphocytes 25.6 % (21.0-51.0); %Monocytes 10.9 % (0.0-10.0); %Neutrophils 61.4 % (42.0-75.0); Hemoglobin 13.4 g/dL (14.0-18.0); Mean Corpuscular HGB CONC 31.3 g/dL (32.0-36.0); Mean Corpuscular Hemoglobin 31.4 pg (27.0-31.0); Mean Platelet Volume 8.2 fL (7.4-10.4); Platelet Count 267 thou/uL (130-400); RBC Distribution Width 14.5 % (11.5-14.5); Red Blood Cell (RBC) Count 4.27 mill/uL (4.70-6.10); White Blood Cell (WBC) Count 9.8 thou/uL (4.8-10.8)
[2020-04-04 04:17] LABS: Anion Gap 17 mmol/L (10-20); BUN (Urea Nitrogen) 26 mg/dL (8.9-20.6); Calc. Creatinine Clearance 137 mL/min (70-130); Calcium 9.2 mg/dL (7.8-10.44); Carbon Dioxide 28 mmol/L (22-29); Chloride 98 mmol/L (98-107); Glucose 79 mg/dL (70-105); Potassium 4.9 mmol/L (3.5-5.1); Sodium 138 mmol/L (136-145)
--- NOTE | 2020-04-04 08:44 | PDOC.EP ---
- Subjective Date: 04/04/20 Time: 08:43 Interval History: Stable overnight. Awaiting DAVID/CV - Review of Systems Constitutional: denies: chills, fever, malaise, sweats, weakness, other Respiratory: reports: SOB with excertion Cardiology: denies: chest pain, edema, heart racing, light headedness, paroxysmal noc. dyspnea, orthopnea, palpitations, passing out, pleuritic pain, pressure, swelling, other Gastrointestinal: denies: abdominal pain, constipation, diarrhea, hematochezia, melena, nausea, vomitting, other Musculoskeletal: denies: unstable gait, falls, neck pain, shoulder pain, arm pain, hand pain, leg pain, foot pain, other Neurological: denies: headache, vision changes, other - Objective Allergies/Adverse Reactions: Allergies Allergy/AdvReac Type Severity Reaction Status Date / Time lisinopril Allergy Mild Verified 03/30/20 16:32 Current Medications Acetaminophen (Acetaminophen 325 Mg Tab) 650 mg PO Q4H PRN PRN Reason: Headache/Fever/Mild Pain (1-3) Last Admin: 03/30/20 21:11 Dose: 650 mg Documented by: Hydrocodone Bitart/Acetaminophen (Hydrocodone/Acetaminophen 5/325 Mg Tablet) 1 tab PO Q4H PRN PRN Reason: Moderate Pain (4-6) Allopurinol (Allopurinol 100 Mg Tab) 100 mg PO DAILY [facility] Last Admin: 04/03/20 08:44 Dose: 100 mg Documented by: Amiodarone HCl (Amiodarone 200 Mg Tab) 400 mg PO TID [facility] Last Admin: 04/03/20 22:07 Dose: 400 mg Documented by: Aspirin (Aspirin Chewable 81 Mg Tab) 81 mg PO DAILY [facility] Last Admin: 04/03/20 08:44 Dose: 81 mg Documented by: Atorvastatin Calcium (Atorvastatin Calcium 40 Mg Tab) 40 mg PO HS [facility] Last Admin: 04/03/20 22:07 Dose: 40 mg Documented by: Bisacodyl (Bisacodyl 10 Mg Supp) 10 mg ND DAILYPRN PRN PRN Reason: Constipation Calcium Carbonate (Calcium Carbonate 500 Mg Chewtab) 1,000 mg PO Q4H PRN PRN Reason: Heartburn or Indigestion Last Admin: 04/01/20 03:39 Dose: 1,000 mg Documented by: Carvedilol (Carvedilol 3.125 Mg Tab) 3.125 mg PO BID-WM [facility] Last Admin: 04/03/20 17:37 Dose: 3.125 mg Documented by: Cyanocobalamin (Cyanocobalamin (Vitamin B-12) 1,000 Mcg Tab) 1,000 mcg PO DAILY [facility] Last Admin: 04/03/20 08:44 Dose: 1,000 mcg Documented by: Enoxaparin Sodium (Enoxaparin Sodium 80 Mg/0.8 Ml Syringe) 160 mg SC 0900,2100 [facility] Last Admin: 04/03/20 22:08 Dose: 160 mg Documented by: Folic Acid (Folic Acid 1 Mg Tab) 1 mg PO DAILY [facility] Last Admin: 04/03/20 08:44 Dose: 1 mg Documented by: Furosemide (Furosemide 40 Mg Tab) 40 mg PO 0900,1400 [facility] Last Admin: 04/03/20 13:44 Dose: 40 mg Documented by: Guaifenesin/Dextromethorphan (Guaifenesin Dm 100-10/5 Ml Udcup) 15 ml PO Q4H PRN PRN Reason: Cough Hydralazine HCl (Hydralazine 20 Mg/Ml Vial) 10 mg SLOW IVP Q4H PRN PRN Reason: SBP > 180 and HR < 70 Loperamide HCl (Loperamide Hcl 2 Mg Cap) 2 mg PO PRN PRN PRN Reason: Diarrhea/Loose Stools Loratadine (Loratadine 10 Mg Tab) 10 mg PO DAILYPRN PRN PRN Reason: Sinus Symptoms Metoclopramide HCl (Metoclopramide Hcl 10 Mg/2 Ml Vial) 5 mg IVP Q4H PRN PRN Reason: Nausea Pantoprazole Sodium (Pantoprazole 40 Mg Tab) 40 mg PO DAILY [facility] Last Admin: 04/03/20 08:44 Dose: 40 mg Documented by: Sacubitril/Valsartan (Sacubitril 24mg/Valsartan 26mg Tab) 1 tab PO BID [facility] Last Admin: 04/03/20 22:15 Dose: 1 tab Documented by: Senna/Docusate Sodium (Senokot S 8.6-50 Mg Tab) 2 tab PO BID PRN PRN Reason: Constipation Last Admin: 04/03/20 22:16 Dose: 2 tab Documented by: Sodium Chloride (Sodium Chloride 0.65% Nasal 44 Ml Bot) 0 ml EA NARE QIDPRN PRN PRN Reason: Nasal Congestion Throat Lozenges (Cepastat Lozenges 1 Sandra) 1 sandra PO Q2H PRN PRN Reason: Sore Throat Zolpidem Tartrate (Zolpidem Tartrate 5 Mg Tab) 5 mg PO HSPRN PRN PRN Reason: Insomnia Vital Signs & Weight: Vital Signs Temp Pulse Resp BP Pulse Ox 04/04/20 08:06 98.7 F 100 19 122/90 92 L 04/04/20 03:29 98.8 F 111 H 18 95 Admit Weight 357 lb Weight 347 lb 11.2 oz I/O: I/O 04/03/20 04/04/20 04/05/20 06:59 06:59 06:59 Intake Total 720 Balance 720 - Quality Measures Condition: Atrial Fibrillation/Flutter (hx or current) (On Lovenox) - Physical Exam General: alert & oriented x3, appears well HEENT: normocephaly Neck: JVD/HJR Cardiology: no murmur, irregularly irregular Lungs: clear to auscultation, no wheezes, no rales Neurology: grossly intact Abdomen: unremarkable, soft, non-tender Extremities: warm, + edema B Musculoskeletal: no pain - Chadsvasc Risk factors Congestive heart failure: 1 Hypertension: 1 Diabetes mellitus: 1 Risk Score: 3 - Labs Result Diagrams: 04/04/20 03:26 04/04/20 03:26 Labs: no biomarkers today - EKG Interpretation EKG Method: Telemetry EKG shows: Atrial fibrillation - Assessment/Plan Assessment/Plan: ASSESSMENT AND PLAN: Mr. Neumann is a pleasant 34-year-old man with prior history of hypertension, obesity, type 2 diabetes, who was admitted with heart failure exacerbation and newly found atrial fibrillation with rapid rates. He has been treated with amiodarone and diuretics with improving symptoms, but continues to be in atrial fibrillation. 1. Acute newly found systolic congestive heart failure and likely nonischemic cardiomyopathy. a. Severely reduced LVEF at less than 10% on 2D echo from 03/31/2020 with moderate biatrial enlargement, mild TR, and decreased RV systolic function as well. 2. Newly found persisting atrial fibrillation with rapid ventricular rates. 3. nonsustained wide-complex arrhythmia runs on tele. 4. Morbid obesity. 4. History of hypertension. 5. Type 2 diabetes. 6. History of smoking. 1. Regarding his - likely nonischemic- cardiomyopathy, His LVEF was reportedly severely reduced on an outpt ECHO in January last year. On the other hand, he has been on suboptimal treatment from the heart failure standpoint only with the valsartan on board. His atrial fibrillation likely further worsened his LVEF . With amiodarone, beta deepak therapy on board and possible planned cardioversion could help his heart LVEF to improve. 2. If LVEF does not improve with optimal therapy within the next 3 months, ICD implantation could be considered. He may benefit from a LifeVest use in the interim. 3. Newly found atrial fibrillation, currently treated with amiodarone. We discussed the pros and cons of this understanding the potential amiodarone toxicity issues as well. On the other hand, with combination of heart failure exacerbation with atrial fibrillation with rapid ventricular rate, it would require us to use the most potent medication, which is indeed amiodarone currently. Should that fail, AV ameena ablation vs pulmonary venous isolation could be a consideration, although he is not a candidate for these options just yet. 5. We will discuss with Dr. Negro and follow up with him after his DAVID cardioversion. 6. Elevated CHADS-VASc score with heart failure, hypertension, and diabetes at 3, likely a reasonable candidate for oral anticoagulation on discharge. 7. Smoking cessation and weight loss strongly recommended. 04/04/19 Stable overnight. No new events. Awaiting DAVID/CV. All concerns addressed with pt and family.
[2020-04-04] MEDS: Cyanocobalamin (Vitamin B-12) 1,000 MCG TAB PO SCH (09:37)
[2020-04-04] MEDS: Furosemide 40 MG TAB PO SCH ×2 (09:38→15:11)
[2020-04-04] MEDS: Carvedilol 3.125 MG TAB PO SCH ×2 (09:38→18:17)
[2020-04-04] MEDS: Folic Acid 1 MG TAB PO SCH (09:38)
[2020-04-04] MEDS: Amiodarone 200 MG TAB PO SCH ×3 (09:38→21:37)
[2020-04-04] MEDS: Allopurinol 100 MG TAB PO SCH (09:38)
[2020-04-04] MEDS: Aspirin Chewable 81 MG TAB PO SCH (09:44)
[2020-04-04] MEDS: Enoxaparin Sodium 80 MG/0.8 ML SYRINGE SC SCH ×2 (09:45→21:38)
[2020-04-04] MEDS ORDERED: Midazolam HCl 2 mg/2 ml Vial ONE (10:59)
[2020-04-04] MEDS ORDERED: Ketamine 50 MG/ML (10ML VIAL) ONE (11:00)
--- NOTE | 2020-04-04 12:23 | OP ---
DATE OF PROCEDURE: 04/04/2020 PROCEDURE PERFORMED: Transesophageal echocardiogram. INDICATION: A 34-year-old gentleman with cardiomyopathy. DESCRIPTION OF PROCEDURE: The patient was taken to the PACU. The patient was sedated by Anesthesiology. A transesophageal probe was placed into the distal esophagus and stomach. Echocardiographic images were obtained. The transesophageal probe was removed. FINDINGS: 1. Severe decrease in left ventricular systolic function. 2. Biatrial enlargement. 3. The left ventricle is markedly dilated. 4. Mild mitral regurgitation. 5. Mild tricuspid regurgitation. 6. No thrombus is noted in the left atrial or left atrial appendage. 7. Atherosclerotic debris in the descending aorta. IMPRESSION: Severe decrease in left ventricular systolic function with mild mitral regurgitation. No thrombus is noted in the left atrium or left atrial appendage. Job ID: [id number]
--- NOTE | 2020-04-04 18:31 | PDOC.HOSPP ---
- Subjective Encounter Date: 04/04/20 - Objective Vital Signs & Weight: Vital Signs (12 hours) Temp Pulse Resp BP Pulse Ox 04/04/20 15:05 97.4 F L 75 18 132/84 92 L 04/04/20 12:12 98.1 F 92 18 130/60 92 L 04/04/20 12:00 101 H 14 98 04/04/20 11:48 89 12 110/94 H 100 04/04/20 08:06 98.7 F 100 19 122/90 92 L Weight Admit Weight 357 lb Weight 347 lb 11.2 oz I&O: 04/03/20 04/04/20 04/05/20 06:59 06:59 06:59 Intake Total 720 840 Output Total 1000 Balance 720 -160 Result Diagrams: 04/04/20 03:26 04/04/20 03:26 Hospitalist ROS - Medication Medications: Active Medications Generic Name Dose Route Start Last Admin Trade Name Freq PRN Reason Stop Dose Admin Acetaminophen 650 mg 03/30/20 14:48 03/30/20 21:11 Acetaminophen 325 Mg Tab PO 650 mg Q4H PRN Administration Headache/Fever/Mild Pain (1-3) Allopurinol 100 mg 03/31/20 09:00 04/04/20 09:38 Allopurinol 100 Mg Tab PO 100 mg DAILY [facility] Administration Amiodarone HCl 400 mg 04/02/20 15:00 04/04/20 15:11 Amiodarone 200 Mg Tab PO 400 mg TID [facility] Administration Aspirin 81 mg 03/31/20 09:00 04/04/20 09:44 Aspirin Chewable 81 Mg Tab PO 81 mg DAILY [facility] Administration Atorvastatin Calcium 40 mg 03/30/20 21:00 04/03/20 22:07 Atorvastatin Calcium 40 Mg Tab PO 40 mg HS [facility] Administration Calcium Carbonate 1,000 mg 03/30/20 14:48 04/01/20 03:39 Calcium Carbonate 500 Mg Chewtab PO 1,000 mg Q4H PRN Administration Heartburn or Indigestion Carvedilol 6.25 mg 04/04/20 17:00 04/04/20 18:17 Carvedilol 3.125 Mg Tab PO 6.25 mg BID-WM [facility] Administration Cyanocobalamin 1,000 mcg 04/02/20 09:00 04/04/20 09:37 Cyanocobalamin (Vitamin B-12) 1,000 Mcg Tab PO 1,000 mcg DAILY [facility] Administration Enoxaparin Sodium 160 mg 03/30/20 21:00 04/04/20 09:45 Enoxaparin Sodium 80 Mg/0.8 Ml Syringe SC Not Given 0900,2100 [facility] Folic Acid 1 mg 04/02/20 09:00 04/04/20 09:38 Folic Acid 1 Mg Tab PO 1 mg DAILY [facility] Administration Furosemide 40 mg 04/03/20 14:00 04/04/20 15:11 Furosemide 40 Mg Tab PO 40 mg 0900,1400 [facility] Administration Pantoprazole Sodium 40 mg 03/31/20 09:00 04/04/20 09:37 Pantoprazole 40 Mg Tab PO 40 mg DAILY [facility] Administration Sacubitril/Valsartan 1 tab 04/03/20 21:00 04/04/20 09:43 Sacubitril 24mg/Valsartan 26mg Tab PO 1 tab BID [facility] Administration Senna/Docusate Sodium 2 tab 03/30/20 14:48 04/03/20 22:16 Senokot S 8.6-50 Mg Tab PO 2 tab BID PRN Administration Constipation - Exam General Appearance: awake alert Eye: PERRL ENT: normocephalic atraumatic Neck: supple, symmetric Heart: RRR, no gallops Respiratory: CTAB, no wheezes, no rales, no ronchi Gastrointestinal: soft, non-tender, non-distended Hosp A/P (1) Acute on chronic systolic CHF (congestive heart failure) Code(s): I50.23 - ACUTE ON CHRONIC SYSTOLIC (CONGESTIVE) HEART FAILURE Status: Acute (2) Acute renal failure superimposed on chronic kidney disease Code(s): N17.9 - ACUTE KIDNEY FAILURE, UNSPECIFIED; N18.9 - CHRONIC KIDNEY DISEASE, UNSPECIFIED Status: Acute Qualifiers: Acute renal failure type: unspecified Chronic kidney disease stage: stage 3 (moderate) Chronic kidney disease stage 3 subtype: stage 3a (GFR 45-59) Qualified Code(s): N17.9 - Acute kidney failure, unspecified; N18.31 - Chronic kidney disease, stage 3a (3) Atrial fibrillation with rapid ventricular response Code(s): I48.91 - UNSPECIFIED ATRIAL FIBRILLATION Status: Acute (4) NSVT (nonsustained ventricular tachycardia) Code(s): I47.2 - VENTRICULAR TACHYCARDIA Status: Acute (5) Hyperuricemia Code(s): E79.0 - HYPERURICEMIA W/O SIGNS OF INFLAM ARTHRIT AND TOPHACEOUS DIS Status: Chronic (6) Morbid obesity with BMI of 45.0-49.9, adult Code(s): E66.01 - MORBID (SEVERE) OBESITY DUE TO EXCESS CALORIES; Z68.42 - BODY MASS INDEX [BMI] 45.0-49.9, ADULT Status: Chronic - Plan patient appears well. Awaiting EP consult for further recommendation 9 they were recalled today) Follow-up cardiology recommendations. Resume Lovenox since no procedure is planned for him today. resume diet. Repeats labs in am. plan for today 1/5 post DAVID and cardioversion, he will need a lifevest. Entresto added. continue same management.
[2020-04-04] MEDS: Atorvastatin Calcium 40 MG TAB PO SCH (21:37)
[2020-04-05 04:44] LABS: #Basophils 0.1 thou/uL (0.0-0.2); #Eosinphils 0.1 thou/uL (0.0-0.7); #Lymphocytes 3.7 thou/uL (1.20-3.40); #Monocytes 0.9 thou/uL (0.11-0.59); #Neutrophils 6.6 thou/uL (1.40-6.50); %Basophils 1.2 % (0.0-1.0); %Eosinophils 0.9 % (0.0-10.0); %Lymphocytes 32.7 % (21.0-51.0); %Monocytes 7.7 % (0.0-10.0); %Neutrophils 57.6 % (42.0-75.0); Hemoglobin 14.4 g/dL (14.0-18.0); Mean Corpuscular HGB CONC 31.2 g/dL (32.0-36.0); Mean Corpuscular Hemoglobin 31.3 pg (27.0-31.0); Mean Platelet Volume 7.3 fL (7.4-10.4); Platelet Count 282 thou/uL (130-400); RBC Distribution Width 14.4 % (11.5-14.5); Red Blood Cell (RBC) Count 4.61 mill/uL (4.70-6.10); White Blood Cell (WBC) Count 11.4 thou/uL (4.8-10.8)
[2020-04-05 05:09] LABS: Anion Gap 16 mmol/L (10-20); BUN (Urea Nitrogen) 36 mg/dL (8.9-20.6); Calc. Creatinine Clearance 112 mL/min (70-130); Calcium 9.5 mg/dL (7.8-10.44); Carbon Dioxide 32 mmol/L (22-29); Chloride 97 mmol/L (98-107); Glucose 99 mg/dL (70-105); Potassium 4.8 mmol/L (3.5-5.1); Sodium 140 mmol/L (136-145)
[2020-04-05] MEDS: Aspirin Chewable 81 MG TAB PO SCH (08:34)
[2020-04-05] MEDS: Carvedilol 3.125 MG TAB PO SCH ×2 (08:34→16:37)
[2020-04-05] MEDS: Allopurinol 100 MG TAB PO SCH (08:35)
[2020-04-05] MEDS: Amiodarone 200 MG TAB PO SCH ×3 (08:35→21:07)
[2020-04-05] MEDS: Cyanocobalamin (Vitamin B-12) 1,000 MCG TAB PO SCH (08:35)
[2020-04-05] MEDS: Folic Acid 1 MG TAB PO SCH (08:35)
[2020-04-05] MEDS: Enoxaparin Sodium 80 MG/0.8 ML SYRINGE SC SCH (08:35)
--- NOTE | 2020-04-05 09:21 | PRG ---
DATE OF SERVICE: 04/05/2020 SUBJECTIVE: Mr. Neumann is resting comfortably. No complaints. No shortness of breath. OBJECTIVE: VITAL SIGNS: Blood pressure 116/77, pulse 75, it is regular. LUNGS: Clear. CARDIAC: Normal S1, normal S2. ABDOMEN: Obese and nontender. EXTREMITIES: Still mild to moderate edema. LABS: Patient's creatinine is up to 2.04. ASSESSMENT: 1. Congestive heart failure, idiopathic dilated cardiomyopathy. 2. Syncopal episode. 3. Atrial fibrillation, status post successful cardioversion. PLAN: 1. Awaiting LifeVest. 2. Following that, the patient can be released home. We will reduce amiodarone to 400 mg once a day, furosemide 40 mg once a day, start tomorrow. 3. Carvedilol 6.25 mg twice a day. 4. Follow up with Dr. Rush next week. 5. Eliquis 5 mg twice a day. Job ID: [id number]
--- NOTE | 2020-04-05 10:26 | PDOC.EP ---
- Subjective Date: 04/05/20 Time: 10:25 Interval History: S/P DAVID/CV yesterday. Feeling better. - Review of Systems Constitutional: denies: chills, fever, malaise, sweats, weakness, other Respiratory: denies: cough, dry, hemoptysis, pleuritic pain, shortness of breath, SOB with excertion, sputum, wheezing, other Cardiology: denies: chest pain, edema, heart racing, light headedness, paroxysmal noc. dyspnea, orthopnea, palpitations, passing out, pleuritic pain, pressure, swelling, other Gastrointestinal: denies: abdominal pain, constipation, diarrhea, hematochezia, melena, nausea, vomitting, other Musculoskeletal: denies: unstable gait, falls, neck pain, shoulder pain, arm pain, hand pain, leg pain, foot pain, other Neurological: denies: headache, vision changes, other - Objective Allergies/Adverse Reactions: Allergies Allergy/AdvReac Type Severity Reaction Status Date / Time lisinopril Allergy Mild Verified 03/30/20 16:32 Current Medications Acetaminophen (Acetaminophen 325 Mg Tab) 650 mg PO Q4H PRN PRN Reason: Headache/Fever/Mild Pain (1-3) Last Admin: 03/30/20 21:11 Dose: 650 mg Documented by: Hydrocodone Bitart/Acetaminophen (Hydrocodone/Acetaminophen 5/325 Mg Tablet) 1 tab PO Q4H PRN PRN Reason: Moderate Pain (4-6) Allopurinol (Allopurinol 100 Mg Tab) 100 mg PO DAILY [facility] Last Admin: 04/05/20 08:35 Dose: 100 mg Documented by: Amiodarone HCl (Amiodarone 200 Mg Tab) 400 mg PO TID [facility] Last Admin: 04/05/20 08:35 Dose: 400 mg Documented by: Aspirin (Aspirin Chewable 81 Mg Tab) 81 mg PO DAILY [facility] Last Admin: 04/05/20 08:34 Dose: 81 mg Documented by: Atorvastatin Calcium (Atorvastatin Calcium 40 Mg Tab) 40 mg PO HS [facility] Last Admin: 04/04/20 21:37 Dose: 40 mg Documented by: Bisacodyl (Bisacodyl 10 Mg Supp) 10 mg NV DAILYPRN PRN PRN Reason: Constipation Calcium Carbonate (Calcium Carbonate 500 Mg Chewtab) 1,000 mg PO Q4H PRN PRN Reason: Heartburn or Indigestion Last Admin: 04/01/20 03:39 Dose: 1,000 mg Documented by: Carvedilol (Carvedilol 3.125 Mg Tab) 6.25 mg PO BID-[facility] Last Admin: 04/05/20 08:34 Dose: 6.25 mg Documented by: Cyanocobalamin (Cyanocobalamin (Vitamin B-12) 1,000 Mcg Tab) 1,000 mcg PO DAILY [facility] Last Admin: 04/05/20 08:35 Dose: 1,000 mcg Documented by: Enoxaparin Sodium (Enoxaparin Sodium 80 Mg/0.8 Ml Syringe) 160 mg SC 0900,2100 [facility] Last Admin: 04/05/20 08:35 Dose: 160 mg Documented by: Folic Acid (Folic Acid 1 Mg Tab) 1 mg PO DAILY [facility] Last Admin: 04/05/20 08:35 Dose: 1 mg Documented by: Guaifenesin/Dextromethorphan (Guaifenesin Dm 100-10/5 Ml Udcup) 15 ml PO Q4H NV N PRN Reason: Cough Hydralazine HCl (Hydralazine 20 Mg/Ml Vial) 10 mg SLOW IVP Q4H PRN PRN Reason: SBP > 180 and HR < 70 Loperamide HCl (Loperamide Hcl 2 Mg Cap) 2 mg PO PRN PRN PRN Reason: Diarrhea/Loose Stools Loratadine (Loratadine 10 Mg Tab) 10 mg PO DAILYPRN PRN PRN Reason: Sinus Symptoms Metoclopramide HCl (Metoclopramide Hcl 10 Mg/2 Ml Vial) 5 mg IVP Q4H PRN PRN Reason: Nausea Pantoprazole Sodium (Pantoprazole 40 Mg Tab) 40 mg PO DAILY [facility] Last Admin: 04/05/20 08:35 Dose: 40 mg Documented by: Sacubitril/Valsartan (Sacubitril 24mg/Valsartan 26mg Tab) 1 tab PO BID [facility] Last Admin: 04/05/20 08:34 Dose: 1 tab Documented by: Senna/Docusate Sodium (Senokot S 8.6-50 Mg Tab) 2 tab PO BID PRN PRN Reason: Constipation Last Admin: 04/03/20 22:16 Dose: 2 tab Documented by: Sodium Chloride (Sodium Chloride 0.65% Nasal 44 Ml Bot) 0 ml EA NARE QIDPRN PRN PRN Reason: Nasal Congestion Throat Lozenges (Cepastat Lozenges 1 Sandra) 1 sandra PO Q2H PRN PRN Reason: Sore Throat Zolpidem Tartrate (Zolpidem Tartrate 5 Mg Tab) 5 mg PO HSPRN PRN PRN Reason: Insomnia Vital Signs & Weight: Vital Signs Temp Pulse Resp BP Pulse Ox 04/05/20 08:30 97.4 F L 66 16 119/72 97 04/05/20 03:37 98.7 F 75 20 116/77 96 Admit Weight 357 lb Weight 347 lb 6.4 oz I/O: I/O 04/04/20 04/05/20 04/06/20 06:59 06:59 06:59 Intake Total 1080 Output Total 1315 Balance -235 - Quality Measures Condition: Atrial Fibrillation/Flutter (hx or current) (On Lovenox) - Physical Exam General: alert & oriented x3. negative: appears well, no apparent distress, cachectic, speech clear, affect appropriate, other HEENT: normocephaly Neck: no JVD/HJR Cardiology: no murmur, regular rate Lungs: normal breath sounds, no wheezes, no rales Neurology: grossly intact Abdomen: unremarkable, soft, non-tender Extremities: warm Musculoskeletal: no pain - Chadsvasc Risk factors Congestive heart failure: 1 Hypertension: 1 Diabetes mellitus: 1 Risk Score: 3 - Labs Result Diagrams: 04/05/20 04:21 04/05/20 04:21 - EKG Interpretation EKG Method: Telemetry EKG shows: Sinus rhythm - Assessment/Plan Assessment/Plan: ASSESSMENT AND PLAN: Mr. Neumann is a pleasant 34-year-old man with prior history of hypertension, obesity, type 2 diabetes, who was admitted with heart failure exacerbation and newly found atrial fibrillation with rapid rates. He has been treated with amiodarone and diuretics with improving symptoms, but continues to be in atrial fibrillation. 1. Acute newly found systolic congestive heart failure and likely nonischemic cardiomyopathy. a. Severely reduced LVEF at less than 10% on 2D echo from 03/31/2020 with moderate biatrial enlargement, mild TR, and decreased RV systolic function as well. 2. Newly found persisting atrial fibrillation with rapid ventricular rates. 3. nonsustained wide-complex arrhythmia runs on tele. 4. Morbid obesity. 4. History of hypertension. 5. Type 2 diabetes. 6. History of smoking. 1. Regarding his - likely nonischemic- cardiomyopathy, His LVEF was reportedly severely reduced on an outpt ECHO in January last year. On the other hand, he has been on suboptimal treatment from the heart failure standpoint only with the valsartan on board. His atrial fibrillation likely further worsened his LVEF . With amiodarone, beta deepak therapy on board and possible planned cardioversion could help his heart LVEF to improve. 2. If LVEF does not improve with optimal therapy within the next 3 months, ICD implantation could be considered. He may benefit from a LifeVest use in the interim. 3. Newly found atrial fibrillation, currently treated with amiodarone. We discussed the pros and cons of this understanding the potential amiodarone toxicity issues as well. On the other hand, with combination of heart failure exacerbation with atrial fibrillation with rapid ventricular rate, it would require us to use the most potent medication, which is indeed amiodarone currently. Should that fail, AV ameena ablation vs pulmonary venous isolation could be a consideration, although he is not a candidate for these options just yet. 5. S/P DAVID cardioversion 04/04/19. In SR on continued amiodarone. 6. Elevated CHADS-VASc score with heart failure, hypertension, and diabetes at 3, likely a reasonable candidate for oral anticoagulation on discharge. 7. Smoking cessation and weight loss strongly recommended. 04/04/19 Stable overnight. No new events. S/P DAVID/CV. 04/05/19 Maintainig SR after CV. On tapered dose amiodarone. Would target 200 mg in a couple of weeks. Would benefit from Life vest. Add OAC on discharge. Plan to reassess for ICD candidacy after 3 months of GDMT for CHF with ARB/BB and Amiodarone as well. Will arrange follow up.
--- NOTE | 2020-04-05 16:35 | PDOC.HOSPP ---
- Subjective Encounter Date: 04/05/20 Subjective: feels well - Objective Vital Signs & Weight: Vital Signs (12 hours) Temp Pulse Resp BP BP Pulse Ox 04/05/20 11:40 98.4 F 84 16 104/68 95 04/05/20 08:30 97.4 F L 66 16 119/72 97 Weight Admit Weight 357 lb Weight 347 lb 6.4 oz I&O: 04/04/20 04/05/20 04/06/20 06:59 06:59 06:59 Intake Total 1080 Output Total 1315 Balance -235 Result Diagrams: 04/05/20 04:21 04/05/20 04:21 Hospitalist ROS - Medication Medications: Active Medications Generic Name Dose Route Start Last Admin Trade Name Freq PRN Reason Stop Dose Admin Acetaminophen 650 mg 03/30/20 14:48 03/30/20 21:11 Acetaminophen 325 Mg Tab PO 650 mg Q4H PRN Administration Headache/Fever/Mild Pain (1-3) Allopurinol 100 mg 03/31/20 09:00 04/05/20 08:35 Allopurinol 100 Mg Tab PO 100 mg DAILY [facility] Administration Amiodarone HCl 400 mg 04/02/20 15:00 04/05/20 08:35 Amiodarone 200 Mg Tab PO 400 mg TID [facility] Administration Aspirin 81 mg 03/31/20 09:00 04/05/20 08:34 Aspirin Chewable 81 Mg Tab PO 81 mg DAILY [facility] Administration Atorvastatin Calcium 40 mg 03/30/20 21:00 04/04/20 21:37 Atorvastatin Calcium 40 Mg Tab PO 40 mg HS [facility] Administration Calcium Carbonate 1,000 mg 03/30/20 14:48 04/01/20 03:39 Calcium Carbonate 500 Mg Chewtab PO 1,000 mg Q4H PRN Administration Heartburn or Indigestion Carvedilol 6.25 mg 04/04/20 17:00 04/05/20 08:34 Carvedilol 3.125 Mg Tab PO 6.25 mg BID-WM [facility] Administration Cyanocobalamin 1,000 mcg 04/02/20 09:00 04/05/20 08:35 Cyanocobalamin (Vitamin B-12) 1,000 Mcg Tab PO 1,000 mcg DAILY [facility] Administration Folic Acid 1 mg 04/02/20 09:00 04/05/20 08:35 Folic Acid 1 Mg Tab PO 1 mg DAILY [facility] Administration Pantoprazole Sodium 40 mg 03/31/20 09:00 04/05/20 08:35 Pantoprazole 40 Mg Tab PO 40 mg DAILY [facility] Administration Sacubitril/Valsartan 1 tab 04/03/20 21:00 04/05/20 08:34 Sacubitril 24mg/Valsartan 26mg Tab PO 1 tab BID [facility] Administration Senna/Docusate Sodium 2 tab 03/30/20 14:48 04/03/20 22:16 Senokot S 8.6-50 Mg Tab PO 2 tab BID PRN Administration Constipation - Exam General Appearance: NAD Eye: PERRL Neck: supple, symmetric Heart: RRR, no murmur Respiratory: CTAB, no wheezes Gastrointestinal: soft, non-tender Hosp A/P (1) Acute on chronic systolic CHF (congestive heart failure) Code(s): I50.23 - ACUTE ON CHRONIC SYSTOLIC (CONGESTIVE) HEART FAILURE Status: Acute (2) Acute renal failure superimposed on chronic kidney disease Code(s): N17.9 - ACUTE KIDNEY FAILURE, UNSPECIFIED; N18.9 - CHRONIC KIDNEY DISEASE, UNSPECIFIED Status: Acute Qualifiers: Acute renal failure type: unspecified Chronic kidney disease stage: stage 3 (moderate) Chronic kidney disease stage 3 subtype: stage 3a (GFR 45-59) Qualified Code(s): N17.9 - Acute kidney failure, unspecified; N18.31 - Chronic kidney disease, stage 3a (3) Atrial fibrillation with rapid ventricular response Code(s): I48.91 - UNSPECIFIED ATRIAL FIBRILLATION Status: Acute (4) NSVT (nonsustained ventricular tachycardia) Code(s): I47.2 - VENTRICULAR TACHYCARDIA Status: Acute (5) Hyperuricemia Code(s): E79.0 - HYPERURICEMIA W/O SIGNS OF INFLAM ARTHRIT AND TOPHACEOUS DIS Status: Chronic (6) Morbid obesity with BMI of 45.0-49.9, adult Code(s): E66.01 - MORBID (SEVERE) OBESITY DUE TO EXCESS CALORIES; Z68.42 - BODY MASS INDEX [BMI] 45.0-49.9, ADULT Status: Chronic - Plan patient appears well. Awaiting EP consult for further recommendation 9 they were recalled today) Follow-up cardiology recommendations. Resume Lovenox since no procedure is planned for him today. resume diet. Repeats labs in am. plan for today 04/04 post DAVID and cardioversion, he will need a lifevest. Entresto added. continue same management. Plan for today 04/05 He awaiting his lifevest he is started on Amio/Eliquis consulted cm to make sure he can be assisted with the cost of his new meds.
[2020-04-05] MEDS: Atorvastatin Calcium 40 MG TAB PO SCH (21:06)
[2020-04-05] MEDS: Apixaban 5 MG TAB PO SCH (21:07)
[2020-04-06] MEDS: Folic Acid 1 MG TAB PO SCH (08:13)
[2020-04-06] MEDS: Carvedilol 3.125 MG TAB PO SCH ×2 (08:13→18:36)
[2020-04-06] MEDS: Apixaban 5 MG TAB PO SCH ×2 (08:13→20:51)
[2020-04-06] MEDS: Amiodarone 200 MG TAB PO SCH (08:13)
[2020-04-06] MEDS: Allopurinol 100 MG TAB PO SCH (08:13)
[2020-04-06] MEDS: Aspirin Chewable 81 MG TAB PO SCH (08:14)
[2020-04-06] MEDS: Cyanocobalamin (Vitamin B-12) 1,000 MCG TAB PO SCH (08:14)
--- NOTE | 2020-04-06 09:57 | PDOC.EP ---
- Subjective Date: 04/06/20 Time: 09:55 Interval History: stable overnight. In SR. - Review of Systems Constitutional: denies: chills, fever, malaise, sweats, weakness, other Respiratory: reports: sputum ( Minimal hemoptysis since DAVID.). denies: cough, dry, hemoptysis, pleuritic pain, shortness of breath, SOB with excertion, whe ezing, other Cardiology: denies: chest pain, edema, heart racing, light headedness, paroxysmal noc. dyspnea, orthopnea, palpitations, passing out, pleuritic pain, pressure, swelling, other Gastrointestinal: reports: abdominal pain, constipation Musculoskeletal: denies: unstable gait, falls, neck pain, shoulder pain, arm niki n, hand pain, leg pain, foot pain, other Neurological: denies: headache, vision changes, other - Objective Allergies/Adverse Reactions: Allergies Allergy/AdvReac Type Severity Reaction Status Date / Time lisinopril Allergy Mild Verified 03/30/20 16:32 Current Medications Acetaminophen (Acetaminophen 325 Mg Tab) 650 mg PO Q4H PRN PRN Reason: Headache/Fever/Mild Pain (1-3) Last Admin: 03/30/20 21:11 Dose: 650 mg Documented by: Hydrocodone Bitart/Acetaminophen (Hydrocodone/Acetaminophen 5/325 Mg Tablet) 1 tab PO Q4H PRN PRN Reason: Moderate Pain (4-6) Allopurinol (Allopurinol 100 Mg Tab) 100 mg PO DAILY [facility] Last Admin: 04/06/20 08:13 Dose: 100 mg Documented by: Amiodarone HCl (Amiodarone 200 Mg Tab) 400 mg PO TID [facility] Last Admin: 04/06/20 08:13 Dose: 400 mg Documented by: Apixaban (Apixaban 5 Mg Tab) 5 mg PO BID [facility] Last Admin: 04/06/20 08:13 Dose: 5 mg Documented by: Aspirin (Aspirin Chewable 81 Mg Tab) 81 mg PO DAILY [facility] Last Admin: 04/06/20 08:14 Dose: 81 mg Documented by: Atorvastatin Calcium (Atorvastatin Calcium 40 Mg Tab) 40 mg PO HS [facility] Last Admin: 04/05/20 21:06 Dose: 40 mg Documented by: Bisacodyl (Bisacodyl 10 Mg Supp) 10 mg [place] DAILYPRN PRN PRN Reason: Constipation Calcium Carbonate (Calcium Carbonate 500 Mg Chewtab) 1,000 mg PO Q4H PRN PRN Reason: Heartburn or Indigestion Last Admin: 04/01/20 03:39 Dose: 1,000 mg Documented by: Carvedilol (Carvedilol 3.125 Mg Tab) 6.25 mg PO BID-[facility] Last Admin: 04/06/20 08:13 Dose: 6.25 mg Documented by: Cyanocobalamin (Cyanocobalamin (Vitamin B-12) 1,000 Mcg Tab) 1,000 mcg PO DAILY [facility] Last Admin: 04/06/20 08:14 Dose: 1,000 mcg Documented by: Folic Acid (Folic Acid 1 Mg Tab) 1 mg PO DAILY [facility] Last Admin: 04/06/20 08:13 Dose: 1 mg Documented by: Guaifenesin/Dextromethorphan (Guaifenesin Dm 100-10/5 Ml Udcup) 15 ml PO Q4H PRN PRN Reason: Cough Hydralazine HCl (Hydralazine 20 Mg/Ml Vial) 10 mg SLOW IVP Q4H PRN PRN Reason: SBP > 180 and HR < 70 Loperamide HCl (Loperamide Hcl 2 Mg Cap) 2 mg PO PRN PRN PRN Reason: Diarrhea/Loose Stools Loratadine (Loratadine 10 Mg Tab) 10 mg PO DAILYPRN PRN PRN Reason: Sinus Symptoms Metoclopramide HCl (Metoclopramide Hcl 10 Mg/2 Ml Vial) 5 mg IVP Q4H PRN PRN Reason: Nausea Pantoprazole Sodium (Pantoprazole 40 Mg Tab) 40 mg PO DAILY [facility] Last Admin: 04/06/20 08:14 Dose: 40 mg Documented by: Sacubitril/Valsartan (Sacubitril 24mg/Valsartan 26mg Tab) 1 tab PO BID [facility] Last Admin: 04/06/20 08:14 Dose: 1 tab Documented by: Senna/Docusate Sodium (Senokot S 8.6-50 Mg Tab) 2 tab PO BID PRN PRN Reason: Constipation Last Admin: 04/03/20 22:16 Dose: 2 tab Documented by: Sodium Chloride (Sodium Chloride 0.65% Nasal 44 Ml Bot) 0 ml EA NARE QIDPRN PRN PRN Reason: Nasal Congestion Throat Lozenges (Cepastat Lozenges 1 Sandra) 1 sandra PO Q2H PRN PRN Reason: Sore Throat Zolpidem Tartrate (Zolpidem Tartrate 5 Mg Tab) 5 mg PO HSPRN PRN PRN Reason: Insomnia Vital Signs & Weight: Vital Signs Temp Pulse Resp BP Pulse Ox 04/06/20 08:00 96.9 F L 70 16 115/67 96 04/06/20 04:00 97.5 F L 70 18 116/66 95 Admit Weight 357 lb Weight 349 lb 8 oz I/O: I/O 04/05/20 04/06/20 04/07/20 06:59 06:59 06:59 Intake Total 1080 2210 Output Total 1315 315 Balance -235 1895 - Quality Measures Condition: Atrial Fibrillation/Flutter (hx or current) CV meds: Eliquis: Yes - Physical Exam General: alert & oriented x3, appears well HEENT: normocephaly Neck: no JVD/HJR Cardiology: regular rate and rhythm, no murmur Lungs: normal breath sounds, no wheezes, no rales Neurology: grossly intact Abdomen: unremarkable, soft, non-tender Extremities: warm Musculoskeletal: normal range of motion - Chadsvasc Risk factors Congestive heart failure: 1 Hypertension: 1 Diabetes mellitus: 1 Risk Score: 3 - Labs Result Diagrams: 04/05/20 04:21 04/05/20 04:21 - EKG Interpretation EKG Method: Telemetry EKG shows: Sinus rhythm - Assessment/Plan Assessment/Plan: ASSESSMENT AND PLAN: Mr. Neumann is a pleasant 34-year-old man with prior history of hypertension, obesity, type 2 diabetes, who was admitted with heart failure exacerbation and newly found atrial fibrillation with rapid rates. He has been treated with amiodarone and diuretics with improving symptoms. 1. Acute newly found systolic congestive heart failure and likely nonischemic cardiomyopathy. a. Severely reduced LVEF at less than 10% on 2D echo from 03/31/2020 with moderate biatrial enlargement, mild TR, and decreased RV systolic function as well. 2. Newly found persisting atrial fibrillation with rapid ventricular rates. - S?P DAVID/CV 04/04/19. In SR on IV->PO Amiodarone taper And Eliquis 3. nonsustained wide-complex arrhythmia runs on tele. 4. Morbid obesity. 4. History of hypertension. 5. Type 2 diabetes. 6. History of smoking. 1. Regarding his - likely nonischemic- cardiomyopathy, His LVEF was reportedly severely reduced on an outpt ECHO in January last year. On the other hand, he has been on suboptimal treatment from the heart failure standpoint only with the valsartan on board. His atrial fibrillation likely further worsened his LVEF . With amiodarone, beta deepak therapy on board and possible planned cardioversion could help his heart LVEF to improve. 2. If LVEF does not improve with optimal therapy within the next 3 months, ICD implantation could be considered. He may benefit from a LifeVest use in the interim. 3. Newly found atrial fibrillation, currently treated with amiodarone. We discussed the pros and cons of this understanding the potential amiodarone toxicity issues as well. On the other hand, with combination of heart failure exacerbation with atrial fibrillation with rapid ventricular rate, it would require us to use the most potent medication, which is indeed amiodarone currently. Should that fail, AV ameena ablation vs pulmonary venous isolation could be a consideration, although he is not a candidate for these options just yet. 5. S/P DAVID cardioversion 04/04/19. In SR on continued amiodarone. 6. Elevated CHADS-VASc score with heart failure, hypertension, and diabetes at 3, Agree with Eliquis for anticoagulation - continue on discharge. 7. Smoking cessation and weight loss strongly recommended. 04/04/19 Stable overnight. No new events. S/P DAVID/CV. 04/05/19 Maintainig SR after CV. On tapered dose amiodarone. Would target 200 mg in a couple of weeks. Would benefit from Life vest. 04/06/19. Stable for discharge. Awaiting life vest evaluation. Plan to reassess for ICD candidacy after 3 months of GDMT for CHF with ARB/BB and Amiodarone as well. Will arrange follow up. Risk of shelter amidaoren ues is discussed.
--- NOTE | 2020-04-06 12:01 | PRG ---
DATE OF SERVICE: 04/06/2020 SUBJECTIVE: Mr. Neumann is feeling fine. He has no complaints. OBJECTIVE: VITAL SIGNS: His blood pressure 113/63; pulse 68, it is regular and sinus. LUNGS: Clear. CARDIAC: Normal S1, normal S2. There is no murmur, rub, or gallop. ABDOMEN: Obese, nontender. EXTREMITIES: Still mild to moderate edema. LABORATORY DATA: Creatinine is increased up to 2.04. ASSESSMENT: 1. Cardiomyopathy with severely depressed left ventricular function. 2. Paroxysmal atrial fibrillation, which was later became persistent atrial fibrillation, successfully cardioverted. 3. Renal function back to the baseline when he came in with, but slightly trending worse. PLAN: 1. He has been taken off furosemide for now. 2. He is on Entresto twice a day. 3. Coreg 6.25 mg twice a day. 4. Aspirin. 5. Eliquis. 6. Amiodarone reduced dose to 400 mg a day for two weeks, then 200 mg a day[address] 7[address]. Rush will see the patient tomorrow get a LifeVest for this gentleman before he released home as he is admitted with a syncopal episode. He is at high risk . Job ID: [id number]
--- NOTE | 2020-04-06 18:30 | PDOC.HOSPP ---
- Subjective Encounter Date: 04/06/20 Subjective: doing well in no acute distress. - Objective Vital Signs & Weight: Vital Signs (12 hours) Temp Pulse Resp BP BP Pulse Ox 04/06/20 15:12 98.5 F 79 17 123/62 97 04/06/20 11:15 97.9 F 68 14 113/63 95 04/06/20 08:00 96.9 F L 70 16 115/67 96 Weight Admit Weight 357 lb Weight 349 lb 8 oz I&O: 04/05/20 04/06/20 04/07/20 06:59 06:59 06:59 Intake Total 1080 2210 Output Total 1315 315 Balance -235 1895 Result Diagrams: 04/05/20 04:21 04/05/20 04:21 Hospitalist ROS - Medication Medications: Active Medications Generic Name Dose Route Start Last Admin Trade Name Freq PRN Reason Stop Dose Admin Acetaminophen 650 mg 03/30/20 14:48 03/30/20 21:11 Acetaminophen 325 Mg Tab PO 650 mg Q4H PRN Administration Headache/Fever/Mild Pain (1-3) Allopurinol 100 mg 03/31/20 09:00 04/06/20 08:13 Allopurinol 100 Mg Tab PO 100 mg DAILY [facility] Administration Apixaban 5 mg 04/05/20 21:00 04/06/20 08:13 Apixaban 5 Mg Tab PO 5 mg BID [facility] Administration Aspirin 81 mg 03/31/20 09:00 04/06/20 08:14 Aspirin Chewable 81 Mg Tab PO 81 mg DAILY [facility] Administration Atorvastatin Calcium 40 mg 03/30/20 21:00 04/05/20 21:06 Atorvastatin Calcium 40 Mg Tab PO 40 mg HS [facility] Administration Calcium Carbonate 1,000 mg 03/30/20 14:48 04/01/20 03:39 Calcium Carbonate 500 Mg Chewtab PO 1,000 mg Q4H PRN Administration Heartburn or Indigestion Carvedilol 6.25 mg 04/04/20 17:00 04/06/20 08:13 Carvedilol 3.125 Mg Tab PO 6.25 mg BID-[facility] Administration Cyanocobalamin 1,000 mcg 04/02/20 09:00 04/06/20 08:14 Cyanocobalamin (Vitamin B-12) 1,000 Mcg Tab PO 1,000 mcg DAILY [facility] Administration Folic Acid 1 mg 04/02/20 09:00 04/06/20 08:13 Folic Acid 1 Mg Tab PO 1 mg DAILY [facility] Administration Pantoprazole Sodium 40 mg 03/31/20 09:00 04/06/20 08:14 Pantoprazole 40 Mg Tab PO 40 mg DAILY [facility] Administration Sacubitril/Valsartan 1 tab 04/03/20 21:00 04/06/20 08:14 Sacubitril 24mg/Valsartan 26mg Tab PO 1 tab BID [facility] Administration Senna/Docusate Sodium 2 tab 03/30/20 14:48 04/03/20 22:16 Senokot S 8.6-50 Mg Tab PO 2 tab BID PRN Administration Constipation - Exam Eye: PERRL ENT: normocephalic atraumatic Neck: supple, symmetric Heart: RRR, no murmur, no gallops Respiratory: CTAB, no wheezes, no rales Gastrointestinal: soft, non-tender, non-distended, no hepatomegaly, no splenomegaly Extremities: no cyanosis, no clubbing Hosp A/P (1) Acute on chronic systolic CHF (congestive heart failure) Code(s): I50.23 - ACUTE ON CHRONIC SYSTOLIC (CONGESTIVE) HEART FAILURE Status: Acute (2) Acute renal failure superimposed on chronic kidney disease Code(s): N17.9 - ACUTE KIDNEY FAILURE, UNSPECIFIED; N18.9 - CHRONIC KIDNEY DISEASE, UNSPECIFIED Status: Acute Qualifiers: Acute renal failure type: unspecified Chronic kidney disease stage: stage 3 (moderate) Chronic kidney disease stage 3 subtype: stage 3a (GFR 45-59) Qualified Code(s): N17.9 - Acute kidney failure, unspecified; N18.31 - Chronic kidney disease, stage 3a (3) Atrial fibrillation with rapid ventricular response Code(s): I48.91 - UNSPECIFIED ATRIAL FIBRILLATION Status: Acute (4) NSVT (nonsustained ventricular tachycardia) Code(s): I47.2 - VENTRICULAR TACHYCARDIA Status: Acute (5) Hyperuricemia Code(s): E79.0 - HYPERURICEMIA W/O SIGNS OF INFLAM ARTHRIT AND TOPHACEOUS DIS Status: Chronic (6) Morbid obesity with BMI of 45.0-49.9, adult Code(s): E66.01 - MORBID (SEVERE) OBESITY DUE TO EXCESS CALORIES; Z68.42 - BODY MASS INDEX [BMI] 45.0-49.9, ADULT Status: Chronic - Plan patient appears well. Awaiting EP consult for further recommendation 9 they were recalled today) Follow-up cardiology recommendations. Resume Lovenox since no procedure is planned for him today. resume diet. Repeats labs in am. plan for today 04/04 post DAVID and cardioversion, he will need a lifevest. Entresto added. continue same management. Plan for today 04/05 He awaiting his lifevest he is started on Amio/Eliquis consulted cm to make sure he can be assisted with the cost of his new meds. plan for today 04/06 patient was ready to be discharged today , discharge summary dictated. Their will be a delay in the delivery of his meds, for that reason he will remain on tele tonight to be discharged in am.
[2020-04-06] MEDS: Atorvastatin Calcium 40 MG TAB PO SCH (20:51)
[2020-04-07 04:55] LABS: Anion Gap 11 mmol/L (10-20); BUN (Urea Nitrogen) 30 mg/dL (8.9-20.6); Calc. Creatinine Clearance 133 mL/min (70-130); Carbon Dioxide 34 mmol/L (22-29); Chloride 99 mmol/L (98-107); Glucose 91 mg/dL (70-105); Potassium 4.4 mmol/L (3.5-5.1); Sodium 140 mmol/L (136-145)
[2020-04-07] MEDS: Aspirin Chewable 81 MG TAB PO SCH (08:23)
[2020-04-07] MEDS: Cyanocobalamin (Vitamin B-12) 1,000 MCG TAB PO SCH (08:23)
[2020-04-07] MEDS: Folic Acid 1 MG TAB PO SCH (08:24)
[2020-04-07] MEDS: Apixaban 5 MG TAB PO SCH (08:24)
[2020-04-07] MEDS: Allopurinol 100 MG TAB PO SCH (08:24)
[2020-04-07] MEDS: Carvedilol 3.125 MG TAB PO SCH (08:24)
[2020-04-07] MEDS ORDERED: Amiodarone 200 MG TAB PO SCH (09:00)
[2020-04-07 11:14] VITALS: BP 119/68; TEMP 97.9
--- NOTE | 2020-04-07 13:28 | PDOC.CPN ---
- Subjective Date: 04/07/20 Time: 13:26 Interval history: No new issues. Lifevest in place. Counselled on importance of wearing lifevest. Breathing back to [facility]. - Review of Systems General: denies: fever/chills, weight/appetite/sleep changes, night sweats, fatigue Respiratory: denies: cough, congestion, shortness of breath, exercise intolerance Cardiovascular: denies: chest pain, palpitation, edema, paroxysmal nocturnal dyspnea, orthopnea Gastrointestinal: denies: nausea, vomiting, diarrhea, constipation, abd pain, GI bleeding Musculoskeletal: denies: pain, tenderness, stiffness, swelling, arthritis/arthralgias Neurological: denies: numbness, syncope, seizure, weakness - Objective Allergies/Adverse Reactions: Allergies Allergy/AdvReac Type Severity Reaction Status Date / Time lisinopril Allergy Mild Verified 03/30/20 16:32 Visit Medications: Current Medications Acetaminophen (Acetaminophen 325 Mg Tab) 650 mg PO Q4H PRN PRN Reason: Headache/Fever/Mild Pain (1-3) Last Admin: 03/30/20 21:11 Dose: 650 mg Documented by: Hydrocodone Bitart/Acetaminophen (Hydrocodone/Acetaminophen 5/325 Mg Tablet) 1 tab PO Q4H PRN PRN Reason: Moderate Pain (4-6) Allopurinol (Allopurinol 100 Mg Tab) 100 mg PO DAILY [facility] Last Admin: 04/07/20 08:24 Dose: 100 mg Documented by: Amiodarone HCl (Amiodarone 200 Mg Tab) 400 mg PO DAILY [facility] Last Admin: 04/07/20 08:23 Dose: 400 mg Documented by: Apixaban (Apixaban 5 Mg Tab) 5 mg PO BID [facility] Last Admin: 04/07/20 08:24 Dose: 5 mg Documented by: Aspirin (Aspirin Chewable 81 Mg Tab) 81 mg PO DAILY [facility] Last Admin: 04/07/20 08:23 Dose: 81 mg Documented by: Atorvastatin Calcium (Atorvastatin Calcium 40 Mg Tab) 40 mg PO HS [facility] Last Admin: 04/06/20 20:51 Dose: 40 mg Documented by: Bisacodyl (Bisacodyl 10 Mg Supp) 10 mg [place] DAILYPRN PRN PRN Reason: Constipation Calcium Carbonate (Calcium Carbonate 500 Mg Chewtab) 1,000 mg PO Q4H PRN PRN Reason: Heartburn or Indigestion Last Admin: 04/01/20 03:39 Dose: 1,000 mg Documented by: Carvedilol (Carvedilol 3.125 Mg Tab) 6.25 mg PO BID-[facility] Last Admin: 04/07/20 08:24 Dose: 6.25 mg Documented by: Cyanocobalamin (Cyanocobalamin (Vitamin B-12) 1,000 Mcg Tab) 1,000 mcg PO DAILY [facility] Last Admin: 04/07/20 08:23 Dose: 1,000 mcg Documented by: Folic Acid (Folic Acid 1 Mg Tab) 1 mg PO DAILY [facility] Last Admin: 04/07/20 08:24 Dose: 1 mg Documented by: Guaifenesin/Dextromethorphan (Guaifenesin Dm 100-10/5 Ml Udcup) 15 ml PO Q4H PRN PRN Reason: Cough Hydralazine HCl (Hydralazine 20 Mg/Ml Vial) 10 mg SLOW IVP Q4H PRN PRN Reason: SBP > 180 and HR < 70 Loperamide HCl (Loperamide Hcl 2 Mg Cap) 2 mg PO PRN PRN PRN Reason: Diarrhea/Loose Stools Loratadine (Loratadine 10 Mg Tab) 10 mg PO DAILYPRN PRN PRN Reason: Sinus Symptoms Metoclopramide HCl (Metoclopramide Hcl 10 Mg/2 Ml Vial) 5 mg IVP Q4H PRN PRN Reason: Nausea Pantoprazole Sodium (Pantoprazole 40 Mg Tab) 40 mg PO DAILY [facility] Last Admin: 04/07/20 08:24 Dose: 40 mg Documented by: Sacubitril/Valsartan (Sacubitril 24mg/Valsartan 26mg Tab) 1 tab PO BID [facility] Last Admin: 04/07/20 08:23 Dose: 1 tab Documented by: Senna/Docusate Sodium (Senokot S 8.6-50 Mg Tab) 2 tab PO BID PRN PRN Reason: Constipation Last Admin: 04/03/20 22:16 Dose: 2 tab Documented by: Sodium Chloride (Sodium Chloride 0.65% Nasal 44 Ml Bot) 0 ml EA NARE QIDPRN PRN PRN Reason: Nasal Congestion Throat Lozenges (Cepastat Lozenges 1 Sandra) 1 sandra PO Q2H PRN PRN Reason: Sore Throat Zolpidem Tartrate (Zolpidem Tartrate 5 Mg Tab) 5 mg PO HSPRN PRN PRN Reason: Insomnia Vital Signs & Weight: Vital Signs Temp Pulse Resp BP BP Pulse Ox 04/07/20 11:00 97.9 F 66 18 119/68 96 04/07/20 08:00 97.7 F 71 18 138/84 96 04/07/20 04:00 98.2 F 67 18 118/66 96 04/07/20 01:56 94 L Admit Weight 357 lb Weight 349 lb 8 oz - Physical Exam General: alert & oriented x3 HEENT: mucus membranes moist Neck: supple neck Cardiac: regular rate and rhythm Lungs: normal breath sounds Neuro: grossly intact Abdomen: active bowel sounds Extremities: 1+ LE edema Skin: clear Musculoskeletal: normal range of motion - Labs Result Diagrams: 04/05/20 04:21 04/07/20 04:08 Troponin/CKMB CK-MB (CK-2) 1.5 ng/mL (0-6.6) 03/30/20 12:20 Troponin I 0.151 ng/mL (< 0.028) H 03/30/20 19:01 - Telemetry Sinus rhythms and dysrhythmias: sinus rhythm - Assessment/Plan Assessment/Plan: 1. Dilated non ischemic cardiomyopathy 2. LVEF at less than 10% 3. Acute on chronic systolic heart failure. 4. Paroxysmal afib PLAN: - Lifevest in place, - Ok to D/C on current regimen. - Follow up in the office in 4 weeks.
--- NOTE | 2020-04-07 16:48 | PDOC.EP ---
- Subjective Date: 04/07/20 Time: 14:00 - Review of Systems Constitutional: denies: chills, fever, malaise, sweats, weakness, other Respiratory: denies: cough, dry, hemoptysis, pleuritic pain, shortness of breath, SOB with excertion, sputum, wheezing, other Gastrointestinal: denies: abdominal pain, constipation, diarrhea, hematochezia, melena, nausea, vomitting, other Musculoskeletal: denies: unstable gait, falls, neck pain, shoulder pain, arm pain, hand pain, leg pain, foot pain, other Neurological: denies: headache, vision changes, other - Objective Allergies/Adverse Reactions: Allergies Allergy/AdvReac Type Severity Reaction Status Date / Time lisinopril Allergy Mild Verified 03/30/20 16:32 Vital Signs & Weight: Vital Signs Temp Pulse Resp BP Pulse Ox 04/07/20 11:00 97.9 F 66 18 119/68 96 04/07/20 08:00 97.7 F 71 18 138/84 96 Admit Weight 357 lb Weight 349 lb 8 oz I/O: I/O 04/06/20 04/07/20 04/08/20 06:59 06:59 06:59 Intake Total 2210 950 Output Total 315 650 Balance 1895 300 - Quality Measures Condition: Atrial Fibrillation/Flutter (hx or current) CV meds: Eliquis: Yes - Physical Exam General: alert & oriented x3, appears well HEENT: normocephaly Neck: midline trachea, no JVD/HJR Cardiology: no murmur, regular rate Lungs: normal breath sounds, no wheezes, no rales Neurology: grossly intact Abdomen: unremarkable, soft, non-tender Extremities: warm Musculoskeletal: no pain - Labs Result Diagrams: 04/05/20 04:21 04/07/20 04:08 - EKG Interpretation EKG Method: Telemetry EKG shows: Sinus rhythm - Assessment/Plan Assessment/Plan: Mr. Neumann is a pleasant 34-year-old man with prior history of hypertension, obesity, type 2 diabetes, who was admitted with heart failure exacerbation and newly found atrial fibrillation with rapid rates. He has been treated with amiodarone and diuretics with improving symptoms. 1. Acute newly found systolic congestive heart failure and likely nonischemic cardiomyopathy. a. Severely reduced LVEF at less than 10% on 2D echo from 03/31/2020 with moderate biatrial enlargement, mild TR, and decreased RV systolic function as well. 2. Newly found persisting atrial fibrillation with rapid ventricular rates. - S?P DAVID/CV 04/04/19. In SR on IV->PO Amiodarone taper And Eliquis 3. nonsustained wide-complex arrhythmia runs on tele. 4. Morbid obesity. 4. History of hypertension. 5. Type 2 diabetes. 6. History of smoking. 1. Regarding his - likely nonischemic- cardiomyopathy, His LVEF was reportedly severely reduced on an outpt ECHO in January last year. On the other hand, he has been on suboptimal treatment from the heart failure standpoint only with the valsartan on board. His atrial fibrillation likely further worsened his LVEF . With amiodarone, beta deepak therapy on board and possible planned cardioversion could help his heart LVEF to improve. 2. If LVEF does not improve with optimal therapy within the next 3 months, ICD implantation could be considered. He may benefit from a LifeVest use in the interim. 3. Newly found atrial fibrillation, currently treated with amiodarone. We discussed the pros and cons of this understanding the potential amiodarone toxicity issues as well. On the other hand, with combination of heart failure exacerbation with atrial fibrillation with rapid ventricular rate, it would require us to use the most potent medication, which is indeed amiodarone currently. Should that fail, AV ameena ablation vs pulmonary venous isolation could be a consideration, although he is not a candidate for these options just yet. 5. S/P DAVID cardioversion 04/04/19. In SR on continued amiodarone. 6. Elevated CHADS-VASc score with heart failure, hypertension, and diabetes at 3, Agree with Eliquis for anticoagulation - continue on discharge. 7. Smoking cessation and weight loss strongly recommended. 04/04/19 Stable overnight. No new events. S/P DAVID/CV. 04/05/19 Maintainig SR after CV. On tapered dose amiodarone. Would target 200 mg in a couple of weeks. Would benefit from Life vest. 04/07/19. Stable for discharge. S/P life vest evaluation. sarmad to reassess for ICD candidacy after 3 months of GDMT for CHF with ARB/BB and Amiodarone as well. Will arrange follow up. Risk of half-way amidaoren ues is discussed.
--- NOTE | 2020-04-07 18:35 | DIS ---
DATE OF ADMISSION: 03/30/2020 DATE OF DISCHARGE: 04/07/2020 DISCHARGE DISPOSITION: To home. PRIMARY DISCHARGE DIAGNOSES: 1. Acute congestive heart failure exacerbation with severe systolic dysfunction and ejection fraction of around 10%. 2. Paroxysmal atrial fibrillation with rapid ventricular response in sinus rhythm, status post cardioversion and DAVID. 3. Nonischemic cardiomyopathy. 4. Morbid obesity with BMI of 46. 5. Acute kidney injury with history of chronic kidney disease, stage 3. 6. Nonsustained ventricular tachycardia. PROCEDURES DONE DURING HOSPITALIZATION: Chest x-ray done on the day of admission showed cardiomegaly. Echo done on the 31 of March showed ejection fraction of less than 10%. RV global systolic function is severely reduced, moderately enlarged RV cavity. Transesophageal echo done on 04/04/2020 showed no evidence of thrombus in the left atrium or left atrial appendage. The patient had cardioversion done post DAVID on the same day that is 04/04/[address] Linda. H and H 14 and 46, platelet count 282, MCV 100. PT/INR 15 and 1.2, PTT 45, BUN 30, creatinine 1.7. Serum bicarb 34, total cholesterol 125, LDL 74, HDL 33, triglycerides 88, TSH 3.23. BNP 765. Urine drug screen negative. COVID-19 PCR was not detected on 03/30/2020. DISCHARGE MEDICATIONS: 1. Aspirin 81 mg p.o. daily. 2. Amiodarone 400 mg p.o. daily for 15 days, then 200 mg p.o. daily thereafter. 3. Carvedilol 6.25 mg twice daily. 4. Eliquis 5 mg twice daily. 5. Entresto 24/26 mg one tablet twice daily. 6. Folic acid 1 mg p.o. daily. 7. Lipitor 40 mg p.o. daily. 8. Vitamin B12 1000 mcg p.o. daily. 9. Allopurinol 100 mg p.o. daily. ALLERGIES: TO LISINOPRIL, BUT HAS BEEN TOLERATING ENTRESTO. DISCHARGE PLAN: The patient is to follow up with Dr. Vega on 07/06/2020 at 10:20 a.m. He needs to follow up with Dr. Rush in [address] Root, his primary care physician in 1 week. BRIEF COURSE DURING HOSPITALIZATION: The patient initially got admitted on the 30 of March with complaints of syncopal episode and atrial fibrillation with RVR. The patient had known history of CHF and had CHF exacerbation as well. His echo revealed ejection fraction of less than 10%. For atrial fibrillation RVR, the patient has had a transesophageal echo done and had cardioversion done for the same. He was subsequently placed on amiodarone and is optimized on current treatment. His heart failure medications were optimized as well. He was placed on Entresto and carvedilol as well. Mr. Thien eRnard as tolerated above medications and he is hemodynamically stable. In view of a very low ejection fraction, a Life Vest was procured for him. He was counseled with regard to medication and dietary compliance and followups with specialist as advised. He is ambulating in the room and will be shortly discharged home. Please note I have seen and examined the patient on the day of discharge. Job ID: [id number]
--- NOTE | 2020-04-08 06:06 | DIS ---
DATE OF ADMISSION: 03/30/2020 DATE OF DISCHARGE: 04/07/2020 DISCHARGE DIAGNOSES: 1. Cardiomyopathy with severely depressed left ventricular function. 2. Paroxysmal atrial fibrillation/atrial fibrillation, status post DAVID and conversion return to sinus rhythm. 3. Chronic kidney disease, stage 3. 4. Morbid obesity. 5. Increased uric acid. 6. Nonsustained ventricular tachycardia. DISCHARGE MEDICATIONS: 1. Baby aspirin. 2. Amiodarone 400 mg once a day for 2 weeks, then 200 mg once a day. 3. Coreg 6.25 mg twice a day. 4. Eliquis 5 mg twice a day. 5. Entresto 1 tablet once a day. 6. Folic acid once a day. 7. Atorvastatin 40 mg p.o. once a day. 8. Vitamin B12 one tablet once a day. 9. Allopurinol 100 mg p.o. once a day. HISTORY OF PRESENT ILLNESS AND HOSPITAL COURSE: This is a 34-year-old male patient, who is known to have a cardiomyopathy. He presented to the ER after having an episode of syncope. In the emergency room he was found to be in AFib with RVR. He was given metoprolol and digoxin, then started on amiodarone drip, also Lovenox twice a day. He was found to have chronic kidney disease stage 3 and type 2 myocardial infarction. He was monitored on telemetry. Serial cardiac enzymes were done. Initially, he was started on IV Lasix, then Lasix was stopped. He was started on Entresto. At some point, his uric acid was checked and it was elevated. He was started on allopurinol, patient was briefly on dobutamine drip for diuretic response. During his stay, he developed recurrent nonsustained V-tach. At some point, he underwent a DAVID that showed no thrombus. He did undergo a cardioversion. He was started on Eliquis. His cardiomyopathy was deemed to be nonischemic. He was diagnosed with severely depressed ventricular function. He was seen by Electrophysiology. Recommendation was to monitor for 3 months after cardioversion. At some point, he might be considered for ICD. Until then, he will need to have a LifeVest, which he will obtain before going home. I did spend more than 40 minutes counseling him about weight loss and the way he should take his medication, the need to follow up with his primary care physician, to recheck his uric acid level, and follow up with Cardiology and Electrophysiology as instructed by them. The patient verbalized understanding. More than 30 minutes was spent to discharge this patient. Job ID: [id number]
== END 2020-04-07 15:01 | disposition home or self-care (01) | DRG 280 ==
LOC: ERS 11:35 → ERHOLD 12:57 → 2NO 15:29
PROVIDERS: ADMIT Internal Medicine; ATTEND Internal Medicine
PROC: 3E033XZ Introduction of Vasopressor into Peripheral Vein, Percutaneous Approach (ICD-10-PCS; 2020-03-31)
PROC: 5A2204Z Restoration of Cardiac Rhythm, Single (ICD-10-PCS; principal; 2020-04-04)
PROC: B24BZZ4 Ultrasonography of Heart with Aorta, Transesophageal (ICD-10-PCS; 2020-04-04)
DX: I48.19 Other persistent atrial fibrillation (principal); I21.A1 Myocardial infarction type 2; I50.23 Acute on chronic systolic (congestive) heart failure; I13.0 Hypertensive heart and chronic kidney disease with heart failure and stage 1 through stage 4 chronic kidney disease, or unspecified chronic kidney disease; Z68.42 Body mass index [BMI] 45.0-49.9, adult; N17.9 Acute kidney failure, unspecified; Z20.822 Contact with and (suspected) exposure to COVID-19; R04.2 Hemoptysis; I47.2 Ventricular tachycardia; N18.30 Chronic kidney disease, stage 3 unspecified; E66.01 Morbid (severe) obesity due to excess calories; I42.8 Other cardiomyopathies; F17.210 Nicotine dependence, cigarettes, uncomplicated; E79.0 Hyperuricemia without signs of inflammatory arthritis and tophaceous disease; I42.0 Dilated cardiomyopathy; E11.22 Type 2 diabetes mellitus with diabetic chronic kidney disease; I08.3 Combined rheumatic disorders of mitral, aortic and tricuspid valves; I48.92 Unspecified atrial flutter; Z79.84 Long term (current) use of oral hypoglycemic drugs; Z79.899 Other long term (current) drug therapy; Z88.8 Allergy status to other drugs, medicaments and biological substances
CPT/HCPCS: 36415; 71045; 80048; 80053; 80061; 80306; 81001; 82550; 82553; 83690; 83735; 83880; 84443; 84550; 85007; 85025; 85027; 85379; 85610; 85730; 87635; 93005; 93306; 93312; 96365; 96372; 96375; J0282; J1160; J1250; J1650; J2250; J3475; J7070; U0003

== ENCOUNTER 2021-06-26 10:36 | Inpatient (IN) | payer BC, MEDICAID, OTHER ==
[2021-06-26] MEDS ORDERED: Aspirin Chewable 81 MG TAB ONE (11:30)
[2021-06-26] MEDS ORDERED: Furosemide 100 MG/10 ML VIAL ONE (11:30)
[2021-06-26 11:35] LABS: #Basophils 0.1 thou/uL (0.0-0.2); #Eosinphils 0.1 thou/uL (0.0-0.7); #Monocytes 0.7 thou/uL (0.11-0.59); %Basophils 0.8 % (0.0-1.0); %Eosinophils 1.8 % (0.0-10.0); %Lymphocytes 25.4 % (21.0-51.0); %Monocytes 8.8 % (0.0-10.0); %Neutrophils 63.1 % (42.0-75.0); Hemoglobin 13.2 g/dL (14.0-18.0); Mean Corpuscular HGB CONC 31.5 g/dL (32.0-36.0); Mean Corpuscular Hemoglobin 33.7 pg (27.0-31.0); Mean Platelet Volume 7.3 fL (7.4-10.4); Platelet Count 190 thou/uL (130-400); RBC Distribution Width 15.5 % (11.5-14.5); Red Blood Cell (RBC) Count 3.91 mill/uL (4.70-6.10); White Blood Cell (WBC) Count 7.9 thou/uL (4.8-10.8)
[2021-06-26 11:44] LABS: INR-International Normal Ratio 1.3; Prothrombin Time 16.4 sec (12.0-14.7)
[2021-06-26 11:45] LABS: PTT 35.9 sec (22.9-36.1)
[2021-06-26 11:54] LABS: ALT (SGPT) 17 U/L (8-55); AST (SGOT) 15 U/L (5-34); Albumin 3.9 g/dL (3.5-5.0); Alkaline Phosphatase 56 U/L (40-110); Anion Gap 11 mmol/L (10-20); BUN (Urea Nitrogen) 31 mg/dL (8.9-20.6); Calc. Creatinine Clearance 0 mL/min (70-130); Calcium 8.8 mg/dL (7.8-10.44); Carbon Dioxide 29 mmol/L (22-29); Chloride 106 mmol/L (98-107); Globulin 2.7 g/dL (2.4-3.5); Glucose 84 mg/dL (70-105); Potassium 4.8 mmol/L (3.5-5.1); Protein, Total 6.6 g/dL (6.0-8.3); Sodium 141 mmol/L (136-145)
[2021-06-26 12:09] LABS: CKMB 1.8 ng/mL (0-6.6)
[2021-06-26 12:20] LABS: MDiff Complete? YES; Macrocytosis SLIGHT = 6-15 cells (100X) (0-5/hpf); Platelet Morphology Comment Appears Adequate; Polychromasia SLIGHT = 2-3 cells (100X) (0-2/hpf); Stomatocytes SLIGHT = 2-5 cells (100X) (0-1/hpf)
[2021-06-26] MEDS ORDERED: Ondansetron PF 4 MG/2 ML Vial IVP PRN (13:15)
[2021-06-26] MEDS ORDERED: Acetaminophen 325 MG TAB PO PRN (13:15)
[2021-06-26] MEDS: Furosemide 40 MG/4 ML VIAL SLOW IVP SCH (14:17)
[2021-06-26 15:50] LABS: SARS-CoV-2 NAA Rapid Test Not Detected (NotDetected)
[2021-06-26 15:57] LABS: Troponin I 0.027 ng/mL (< 0.028)
[2021-06-26 17:28] VITALS: BMI 50.2
[2021-06-26 18:43] LABS: Troponin I 0.025 ng/mL (< 0.028)
[2021-06-26] MEDS: Apixaban 5 MG TAB PO SCH (21:10)
[2021-06-26] MEDS: Atorvastatin Calcium 40 MG TAB PO SCH (21:10)
[2021-06-26] MEDS: Carvedilol 6.25 MG TAB PO SCH (21:10)
[2021-06-27 05:10] LABS: #Eosinphils 0.2 thou/uL (0.0-0.7); #Lymphocytes 2.5 thou/uL (1.20-3.40); #Monocytes 0.7 thou/uL (0.11-0.59); #Neutrophils 4.8 thou/uL (1.40-6.50); %Basophils 0.5 % (0.0-1.0); %Eosinophils 2.2 % (0.0-10.0); %Lymphocytes 30.2 % (21.0-51.0); %Monocytes 8.8 % (0.0-10.0); %Neutrophils 58.3 % (42.0-75.0); Hemoglobin 13.6 g/dL (14.0-18.0); Mean Corpuscular HGB CONC 30.5 g/dL (32.0-36.0); Mean Platelet Volume 7.5 fL (7.4-10.4); Platelet Count 213 thou/uL (130-400); RBC Distribution Width 15.6 % (11.5-14.5); Red Blood Cell (RBC) Count 4.13 mill/uL (4.70-6.10); White Blood Cell (WBC) Count 8.3 thou/uL (4.8-10.8)
[2021-06-27 05:27] LABS: Anion Gap 12 mmol/L (10-20); BUN (Urea Nitrogen) 32 mg/dL (8.9-20.6); Calc. Creatinine Clearance 129 mL/min (70-130); Carbon Dioxide 30 mmol/L (22-29); Chloride 103 mmol/L (98-107); Glucose 91 mg/dL (70-105); Potassium 4.6 mmol/L (3.5-5.1); Sodium 140 mmol/L (136-145)
[2021-06-27] MEDS: Furosemide 40 MG/4 ML VIAL SLOW IVP SCH ×2 (05:36→13:25)
[2021-06-27] MEDS: Acetaminophen 325 MG TAB PO PRN (05:36)
[2021-06-27] MEDS: Spironolactone 25 MG TAB PO SCH (10:05)
[2021-06-27] MEDS: Apixaban 5 MG TAB PO SCH ×2 (10:06→20:45)
[2021-06-27] MEDS: Cyanocobalamin (Vitamin B-12) 1,000 MCG TAB PO SCH (10:06)
[2021-06-27] MEDS: Amiodarone 200 MG TAB PO SCH (10:06)
[2021-06-27] MEDS: Aspirin Chewable 81 MG TAB PO SCH (10:06)
[2021-06-27] MEDS: Carvedilol 6.25 MG TAB PO SCH ×2 (10:06→20:45)
[2021-06-27] MEDS ORDERED: Furosemide 40 MG/4 ML VIAL SLOW IVP SCH (14:30)
[2021-06-27] MEDS: Atorvastatin Calcium 40 MG TAB PO SCH (20:45)
[2021-06-28] MEDS: Furosemide 40 MG/4 ML VIAL SLOW IVP SCH ×2 (05:11→14:37)
[2021-06-28] MEDS: Acetaminophen 325 MG TAB PO PRN (05:11)
[2021-06-28] MEDS: Spironolactone 25 MG TAB PO SCH (07:50)
[2021-06-28] MEDS: Aspirin Chewable 81 MG TAB PO SCH (07:51)
[2021-06-28] MEDS: Apixaban 5 MG TAB PO SCH ×2 (07:51→19:55)
[2021-06-28] MEDS: Amiodarone 200 MG TAB PO SCH (07:51)
[2021-06-28] MEDS: Carvedilol 6.25 MG TAB PO SCH ×2 (07:51→19:55)
[2021-06-28] MEDS: Cyanocobalamin (Vitamin B-12) 1,000 MCG TAB PO SCH (07:52)
[2021-06-28 11:11] LABS: Anion Gap 12 mmol/L (10-20); BUN (Urea Nitrogen) 30 mg/dL (8.9-20.6); Calc. Creatinine Clearance 135 mL/min (70-130); Calcium 9.6 mg/dL (7.8-10.44); Carbon Dioxide 35 mmol/L (22-29); Chloride 96 mmol/L (98-107); Glucose 113 mg/dL (70-105); Potassium 3.9 mmol/L (3.5-5.1); Sodium 139 mmol/L (136-145)
[2021-06-28] MEDS: Atorvastatin Calcium 40 MG TAB PO SCH (19:55)
[2021-06-29] MEDS ORDERED: PROPOFOL 200 MG/20 ML VIAL ONE (08:19)
[2021-06-29] MEDS: Apixaban 5 MG TAB PO SCH ×2 (09:40→20:05)
[2021-06-29] MEDS: Carvedilol 6.25 MG TAB PO SCH ×2 (09:40→20:05)
[2021-06-29] MEDS: Cyanocobalamin (Vitamin B-12) 1,000 MCG TAB PO SCH (09:40)
[2021-06-29] MEDS: Aspirin Chewable 81 MG TAB PO SCH (09:40)
[2021-06-29] MEDS: Spironolactone 25 MG TAB PO SCH (09:40)
[2021-06-29] MEDS: Amiodarone 200 MG TAB PO SCH (09:40)
[2021-06-29] MEDS ORDERED: Guaifenesin DM 100-10/5 ML UDCUP PO PRN (11:19)
[2021-06-29] MEDS: Furosemide 40 MG/4 ML VIAL SLOW IVP SCH ×2 (11:40→17:08)
[2021-06-29] MEDS: Atorvastatin Calcium 40 MG TAB PO SCH (20:06)
[2021-06-30 04:53] LABS: Anion Gap 12 mmol/L (10-20); BUN (Urea Nitrogen) 31 mg/dL (8.9-20.6); Calc. Creatinine Clearance 129 mL/min (70-130); Calcium 9.5 mg/dL (7.8-10.44); Carbon Dioxide 36 mmol/L (22-29); Chloride 94 mmol/L (98-107); Glucose 84 mg/dL (70-105); Potassium 3.8 mmol/L (3.5-5.1); Sodium 138 mmol/L (136-145)
[2021-06-30] MEDS: Furosemide 40 MG/4 ML VIAL SLOW IVP SCH (06:02)
[2021-06-30] MEDS: Carvedilol 6.25 MG TAB PO SCH (08:33)
[2021-06-30] MEDS: Amiodarone 200 MG TAB PO SCH (08:33)
[2021-06-30] MEDS: Spironolactone 25 MG TAB PO SCH (08:33)
[2021-06-30] MEDS: Apixaban 5 MG TAB PO SCH (08:34)
[2021-06-30] MEDS: Aspirin Chewable 81 MG TAB PO SCH (08:34)
[2021-06-30] MEDS: Cyanocobalamin (Vitamin B-12) 1,000 MCG TAB PO SCH (08:34)
[2021-06-30 12:08] VITALS: BP 135/58; TEMP 97.5
[2021-06-30] MEDS ORDERED: Carvedilol 6.25 MG TAB PO SCH (21:00)
== END 2021-06-30 13:23 | disposition home or self-care (01) | DRG 291 ==
LOC: ERS 10:36 → ERHOLD 13:20 → 2SW 16:51 → OBSVTOIN 06-27 14:33
PROVIDERS: ADMIT Internal Medicine; ATTEND Internal Medicine
PROC: 5A2204Z Restoration of Cardiac Rhythm, Single (ICD-10-PCS; principal; 2021-06-29)
DX: I13.0 Hypertensive heart and chronic kidney disease with heart failure and stage 1 through stage 4 chronic kidney disease, or unspecified chronic kidney disease (principal); I50.23 Acute on chronic systolic (congestive) heart failure; N17.9 Acute kidney failure, unspecified; I47.2 Ventricular tachycardia; Z68.42 Body mass index [BMI] 45.0-49.9, adult; I42.8 Other cardiomyopathies; I42.0 Dilated cardiomyopathy; N18.30 Chronic kidney disease, stage 3 unspecified; E66.01 Morbid (severe) obesity due to excess calories; F17.210 Nicotine dependence, cigarettes, uncomplicated; I48.0 Paroxysmal atrial fibrillation; E78.5 Hyperlipidemia, unspecified; Z20.822 Contact with and (suspected) exposure to COVID-19; N18.9 Chronic kidney disease, unspecified; Z79.01 Long term (current) use of anticoagulants; Z88.8 Allergy status to other drugs, medicaments and biological substances; Z79.82 Long term (current) use of aspirin; Z79.899 Other long term (current) drug therapy
CPT/HCPCS: 36415; 71045; 80048; 80053; 82553; 83880; 84484; 85025; 85610; 85730; 92960; 93005; 93010; 93306; 94760; 96374; 96376; 97139; G0378; J1940; J2704; U0002

== ENCOUNTER 2021-10-02 12:19 | Inpatient (IN) | payer OTHER ==
[2021-10-02 13:03] LABS: #Eosinphils 0.1 thou/uL (0.0-0.7); #Lymphocytes 1.1 thou/uL (1.20-3.40); #Monocytes 0.7 thou/uL (0.11-0.59); #Neutrophils 6.8 thou/uL (1.40-6.50); %Basophils 0.5 % (0.0-1.0); %Eosinophils 1.2 % (0.0-10.0); %Lymphocytes 12.5 % (21.0-51.0); %Monocytes 8.5 % (0.0-10.0); %Neutrophils 77.3 % (42.0-75.0); Hemoglobin 14.5 g/dL (14.0-18.0); Mean Corpuscular HGB CONC 33.1 g/dL (32.0-36.0); Mean Corpuscular Hemoglobin 35.5 pg (27.0-31.0); Platelet Count 187 thou/uL (130-400); RBC Distribution Width 13.3 % (11.5-14.5); Red Blood Cell (RBC) Count 4.09 mill/uL (4.70-6.10); White Blood Cell (WBC) Count 8.8 thou/uL (4.8-10.8)
[2021-10-02 13:24] LABS: MDiff Complete? YES; Macrocytosis SLIGHT = 6-15 cells (100X) (0-5/hpf); Platelet Morphology Comment Appears Adequate; Polychromasia SLIGHT = 2-3 cells (100X) (0-2/hpf); Stomatocytes SLIGHT = 2-5 cells (100X) (0-1/hpf)
[2021-10-02 13:26] LABS: ALT (SGPT) 18 U/L (8-55); AST (SGOT) 18 U/L (5-34); Albumin 4.2 g/dL (3.5-5.0); Alkaline Phosphatase 69 U/L (40-110); Anion Gap 12 mmol/L (10-20); BUN (Urea Nitrogen) 23 mg/dL (8.9-20.6); Bilirubin, Total 1.2 mg/dL (0.2-1.2); Calc. Creatinine Clearance 0 mL/min (70-130); Calcium 9.6 mg/dL (7.8-10.44); Carbon Dioxide 33 mmol/L (22-29); Chloride 100 mmol/L (98-107); Estimated GFR 43; Globulin 3.4 g/dL (2.4-3.5); Glucose 87 mg/dL (70-105); Magnesium 1.9 mg/dL (1.6-2.6); Potassium 4.2 mmol/L (3.5-5.1); Protein, Total 7.6 g/dL (6.0-8.3); Sodium 141 mmol/L (136-145)
[2021-10-02] MEDS ORDERED: Furosemide 40 MG/4 ML VIAL ONE (14:06)
[2021-10-02] MEDS ORDERED: Nitroglycerin 2% Ointment 1 INCH/1 GM Packet ONE (14:06)
[2021-10-02] MEDS ORDERED: Bisacodyl 5 MG TAB PO PRN (14:42)
[2021-10-02] MEDS ORDERED: Senokot S 8.6-50 MG TAB PO PRN (14:42)
[2021-10-02] MEDS ORDERED: Magnesium 2 GM/50 ML(in water) 2 GM in Premix Bag 1 BAG IVPB SCH (15:00)
[2021-10-02 17:31] VITALS: BMI 49.8
[2021-10-02] MEDS: guaiFENesin/Codeine 200 mg/20 mg 10 ml Cup PO PRN (18:47)
[2021-10-02 18:55] LABS: SARS-CoV-2 NAA Rapid Test DETECTED (NotDetected)
[2021-10-02 20:29] LABS: CKMB 2.2 ng/mL (0-6.6)
[2021-10-02] MEDS: Acetaminophen 325 MG TAB PO PRN (21:32)
[2021-10-02] MEDS: Atorvastatin Calcium 40 MG TAB PO SCH (21:33)
[2021-10-02] MEDS: Apixaban 5 MG TAB PO SCH (21:33)
[2021-10-02] MEDS: Carvedilol 25 MG TAB PO SCH (21:33)
[2021-10-02] MEDS: Famotidine 20 MG TAB PO SCH (21:33)
[2021-10-02] MEDS: Torsemide 20 MG TAB PO SCH (21:33)
[2021-10-02] MEDS: Sacubitril 49 MG/Valsartan 51 MG TABLET PO SCH (21:33)
[2021-10-03] MEDS: Acetaminophen 325 MG TAB PO PRN (04:00)
[2021-10-03 04:48] LABS: #Eosinphils 0.1 thou/uL (0.0-0.7); #Lymphocytes 0.8 thou/uL (1.20-3.40); #Neutrophils 6.5 thou/uL (1.40-6.50); %Basophils 0.4 % (0.0-1.0); %Eosinophils 0.8 % (0.0-10.0); %Lymphocytes 9.3 % (21.0-51.0); %Neutrophils 77.5 % (42.0-75.0); Hemoglobin 13.8 g/dL (14.0-18.0); Mean Corpuscular HGB CONC 31.6 g/dL (32.0-36.0); Mean Corpuscular Hemoglobin 34.3 pg (27.0-31.0); Mean Platelet Volume 7.9 fL (7.4-10.4); Platelet Count 159 thou/uL (130-400); RBC Distribution Width 13.3 % (11.5-14.5); Red Blood Cell (RBC) Count 4.03 mill/uL (4.70-6.10); White Blood Cell (WBC) Count 8.3 thou/uL (4.8-10.8)
[2021-10-03 05:22] LABS: Anion Gap 13 mmol/L (10-20); BUN (Urea Nitrogen) 25 mg/dL (8.9-20.6); Calc. Creatinine Clearance 110 mL/min (70-130); Calcium 9.3 mg/dL (7.8-10.44); Carbon Dioxide 32 mmol/L (22-29); Chloride 97 mmol/L (98-107); Estimated GFR 38; Glucose 96 mg/dL (70-105); Sodium 138 mmol/L (136-145)
[2021-10-03] MEDS ORDERED: Amiodarone 200 MG TAB PO SCH (09:00)
[2021-10-03] MEDS: Spironolactone 25 MG TAB PO SCH (09:57)
[2021-10-03] MEDS: Carvedilol 25 MG TAB PO SCH ×2 (09:57→20:50)
[2021-10-03] MEDS: Sacubitril 49 MG/Valsartan 51 MG TABLET PO SCH ×2 (09:57→20:50)
[2021-10-03] MEDS: Famotidine 20 MG TAB PO SCH ×2 (09:57→20:50)
[2021-10-03] MEDS: Apixaban 5 MG TAB PO SCH ×2 (09:57→20:50)
[2021-10-03] MEDS: Torsemide 20 MG TAB PO SCH ×2 (09:57→20:50)
[2021-10-03] MEDS: Cyanocobalamin (Vitamin B-12) 1,000 MCG TAB PO SCH (09:57)
[2021-10-03] MEDS ORDERED: Amiodarone 450 MG in Dextrose 5% in Water 250 ML IVPB SCH (17:45)
[2021-10-03] MEDS: guaiFENesin/Codeine 200 mg/20 mg 10 ml Cup PO PRN (19:34)
[2021-10-03] MEDS: Atorvastatin Calcium 40 MG TAB PO SCH (20:50)
[2021-10-04 04:32] LABS: Anion Gap 14 mmol/L (10-20); BUN (Urea Nitrogen) 33 mg/dL (8.9-20.6); Calc. Creatinine Clearance 106 mL/min (70-130); Calcium 9.4 mg/dL (7.8-10.44); Carbon Dioxide 34 mmol/L (22-29); Chloride 96 mmol/L (98-107); Estimated GFR 36; Glucose 112 mg/dL (70-105); Sodium 140 mmol/L (136-145)
[2021-10-04 04:53] LABS: Band 12 % (5-11); Hemoglobin 14.7 g/dL (14.0-18.0); Lymphocytes 26 % (21-51); MDiff Complete? YES; Mean Corpuscular HGB CONC 31.4 g/dL (32.0-36.0); Mean Corpuscular Hemoglobin 34.2 pg (27.0-31.0); Mean Platelet Volume 8.5 fL (7.4-10.4); Monocytes 18 % (0-10); Neutrophil 43 % (42-75); Platelet Count 177 thou/uL (130-400); RBC Distribution Width 13.4 % (11.5-14.5); Red Blood Cell (RBC) Count 4.28 mill/uL (4.70-6.10); White Blood Cell (WBC) Count 7.3 thou/uL (4.8-10.8)
[2021-10-04] MEDS: Apixaban 5 MG TAB PO SCH ×2 (10:11→20:42)
[2021-10-04] MEDS: Cyanocobalamin (Vitamin B-12) 1,000 MCG TAB PO SCH (10:11)
[2021-10-04] MEDS: Carvedilol 25 MG TAB PO SCH ×2 (10:11→20:42)
[2021-10-04] MEDS: Sacubitril 49 MG/Valsartan 51 MG TABLET PO SCH ×2 (10:12→20:42)
[2021-10-04] MEDS: Famotidine 20 MG TAB PO SCH ×2 (10:12→20:42)
[2021-10-04] MEDS: Spironolactone 25 MG TAB PO SCH (10:12)
[2021-10-04] MEDS: Torsemide 20 MG TAB PO SCH ×2 (10:12→20:42)
[2021-10-04] MEDS ORDERED: Dexamethasone 4 mg/ml Vial SLOW IVP SCH (18:15)
[2021-10-04] MEDS: guaiFENesin/Codeine 200 mg/20 mg 10 ml Cup PO PRN (20:42)
[2021-10-04] MEDS: Atorvastatin Calcium 40 MG TAB PO SCH (20:42)
[2021-10-05 04:12] LABS: #Lymphocytes 1.3 thou/uL (1.20-3.40); #Monocytes 0.3 thou/uL (0.11-0.59); #Neutrophils 5.8 thou/uL (1.40-6.50); %Basophils 0.2 % (0.0-1.0); %Lymphocytes 17.9 % (21.0-51.0); %Monocytes 4.5 % (0.0-10.0); %Neutrophils 77.4 % (42.0-75.0); Hemoglobin 15.8 g/dL (14.0-18.0); Mean Corpuscular HGB CONC 31.4 g/dL (32.0-36.0); Mean Corpuscular Hemoglobin 34.5 pg (27.0-31.0); Mean Platelet Volume 8.2 fL (7.4-10.4); Platelet Count 192 thou/uL (130-400); RBC Distribution Width 13.2 % (11.5-14.5); Red Blood Cell (RBC) Count 4.57 mill/uL (4.70-6.10); White Blood Cell (WBC) Count 7.5 thou/uL (4.8-10.8)
[2021-10-05 04:33] LABS: Anion Gap 16 mmol/L (10-20); BUN (Urea Nitrogen) 41 mg/dL (8.9-20.6); Calc. Creatinine Clearance 100 mL/min (70-130); Calcium 9.9 mg/dL (7.8-10.44); Carbon Dioxide 33 mmol/L (22-29); Chloride 96 mmol/L (98-107); Estimated GFR 35; Glucose 147 mg/dL (70-105); Magnesium 2.2 mg/dL (1.6-2.6); Potassium 4.4 mmol/L (3.5-5.1); Sodium 141 mmol/L (136-145)
[2021-10-05] MEDS ORDERED: Metoprolol Tartrate 5 MG/5 ML VIAL IVP PRN (05:10)
[2021-10-05] MEDS ORDERED: Benzonatate 100 MG CAP PO PRN ×2 (05:10→18:00)
[2021-10-05] MEDS: Ipratropium Oral Inhaler INH SCH ×4 (10:21→18:31)
[2021-10-05] MEDS: Famotidine 20 MG TAB PO SCH ×2 (10:22→21:18)
[2021-10-05] MEDS: Carvedilol 25 MG TAB PO SCH ×2 (10:22→21:18)
[2021-10-05] MEDS: Torsemide 20 MG TAB PO SCH ×2 (10:22→21:18)
[2021-10-05] MEDS: Spironolactone 25 MG TAB PO SCH (10:22)
[2021-10-05] MEDS: Zinc Sulfate 220 MG CAP PO SCH (10:23)
[2021-10-05] MEDS: Cyanocobalamin (Vitamin B-12) 1,000 MCG TAB PO SCH (10:23)
[2021-10-05] MEDS: Apixaban 5 MG TAB PO SCH ×2 (10:23→21:18)
[2021-10-05] MEDS: Sacubitril 49 MG/Valsartan 51 MG TABLET PO SCH ×2 (10:23→21:18)
[2021-10-05] MEDS: Ascorbic Acid 500 mg Chewable Tablet PO SCH (10:23)
[2021-10-05] MEDS: Dexamethasone 4 mg/ml Vial SLOW IVP SCH (10:24)
[2021-10-05] MEDS: Atorvastatin Calcium 40 MG TAB PO SCH (21:18)
[2021-10-05] MEDS: Benzonatate 100 MG CAP PO SCH (21:18)
[2021-10-06 04:37] LABS: #Lymphocytes 2.1 thou/uL (1.20-3.40); #Monocytes 1.4 thou/uL (0.11-0.59); #Neutrophils 11.6 thou/uL (1.40-6.50); %Basophils 0.1 % (0.0-1.0); %Lymphocytes 13.6 % (21.0-51.0); %Monocytes 9.5 % (0.0-10.0); %Neutrophils 76.8 % (42.0-75.0); Hemoglobin 15.8 g/dL (14.0-18.0); Mean Corpuscular HGB CONC 31.1 g/dL (32.0-36.0); Mean Corpuscular Hemoglobin 34.2 pg (27.0-31.0); Mean Platelet Volume 8.8 fL (7.4-10.4); Platelet Count 209 thou/uL (130-400); RBC Distribution Width 13.3 % (11.5-14.5); Red Blood Cell (RBC) Count 4.61 mill/uL (4.70-6.10); White Blood Cell (WBC) Count 15.2 thou/uL (4.8-10.8)
[2021-10-06] MEDS: guaiFENesin/Codeine 200 mg/20 mg 10 ml Cup PO PRN (05:03)
[2021-10-06 05:17] LABS: BUN (Urea Nitrogen) 45 mg/dL (8.9-20.6); Calc. Creatinine Clearance 103 mL/min (70-130); Estimated GFR 37; Glucose 99 mg/dL (70-105)
[2021-10-06 05:27] LABS: Anion Gap 15 mmol/L (10-20); Carbon Dioxide 36 mmol/L (22-29); Chloride 94 mmol/L (98-107); Potassium 4.2 mmol/L (3.5-5.1); Sodium 141 mmol/L (136-145)
[2021-10-06] MEDS: Ipratropium Oral Inhaler INH SCH ×4 (06:14→19:14)
[2021-10-06] MEDS: Benzonatate 100 MG CAP PO SCH ×2 (08:31→19:53)
[2021-10-06] MEDS: Famotidine 20 MG TAB PO SCH ×2 (08:31→19:53)
[2021-10-06] MEDS: Ascorbic Acid 500 mg Chewable Tablet PO SCH (08:32)
[2021-10-06] MEDS: Dexamethasone 4 mg/ml Vial SLOW IVP SCH (08:32)
[2021-10-06] MEDS: Cyanocobalamin (Vitamin B-12) 1,000 MCG TAB PO SCH (08:32)
[2021-10-06] MEDS: Zinc Sulfate 220 MG CAP PO SCH (08:32)
[2021-10-06] MEDS: Apixaban 5 MG TAB PO SCH ×2 (08:33→19:54)
[2021-10-06] MEDS: Carvedilol 25 MG TAB PO SCH ×2 (08:36→19:53)
[2021-10-06] MEDS: Spironolactone 25 MG TAB PO SCH (08:36)
[2021-10-06] MEDS: Torsemide 20 MG TAB PO SCH ×2 (08:36→19:53)
[2021-10-06] MEDS: Sacubitril 49 MG/Valsartan 51 MG TABLET PO SCH ×2 (08:36→19:53)
[2021-10-06] MEDS: Atorvastatin Calcium 40 MG TAB PO SCH (19:54)
[2021-10-07 04:31] LABS: #Lymphocytes 2.5 thou/uL (1.20-3.40); #Monocytes 1.1 thou/uL (0.11-0.59); #Neutrophils 11.6 thou/uL (1.40-6.50); %Basophils 0.3 % (0.0-1.0); %Eosinophils 0.1 % (0.0-10.0); %Lymphocytes 16.2 % (21.0-51.0); %Monocytes 7.5 % (0.0-10.0); %Neutrophils 75.9 % (42.0-75.0); Hemoglobin 16.4 g/dL (14.0-18.0); Mean Corpuscular HGB CONC 34.2 g/dL (32.0-36.0); Mean Corpuscular Hemoglobin 36.9 pg (27.0-31.0); Mean Platelet Volume 8.8 fL (7.4-10.4); Platelet Count 195 thou/uL (130-400); RBC Distribution Width 13.1 % (11.5-14.5); Red Blood Cell (RBC) Count 4.46 mill/uL (4.70-6.10); White Blood Cell (WBC) Count 15.2 thou/uL (4.8-10.8)
[2021-10-07 04:55] LABS: Anion Gap 15 mmol/L (10-20); BUN (Urea Nitrogen) 50 mg/dL (8.9-20.6); Calc. Creatinine Clearance 115 mL/min (70-130); Carbon Dioxide 36 mmol/L (22-29); Chloride 95 mmol/L (98-107); Estimated GFR 42; Glucose 105 mg/dL (70-105); Potassium 4.1 mmol/L (3.5-5.1); Sodium 142 mmol/L (136-145)
[2021-10-07] MEDS ORDERED: ADENOSINE 60 MG/20 ML VIAL IVP SCH (09:00)
[2021-10-07] MEDS ORDERED: Adenosine 6 MG/2 ML VIAL IVP SCH (09:15)
[2021-10-07] MEDS: Dexamethasone 4 mg/ml Vial SLOW IVP SCH (09:31)
[2021-10-07] MEDS: Zinc Sulfate 220 MG CAP PO SCH (09:32)
[2021-10-07] MEDS: Famotidine 20 MG TAB PO SCH ×2 (09:32→20:39)
[2021-10-07] MEDS: Benzonatate 100 MG CAP PO SCH ×2 (09:32→20:39)
[2021-10-07] MEDS: Carvedilol 25 MG TAB PO SCH ×2 (09:32→20:39)
[2021-10-07] MEDS: Sacubitril 49 MG/Valsartan 51 MG TABLET PO SCH ×2 (09:32→20:39)
[2021-10-07] MEDS: Ascorbic Acid 500 mg Chewable Tablet PO SCH (09:32)
[2021-10-07] MEDS: Torsemide 20 MG TAB PO SCH ×2 (09:32→20:40)
[2021-10-07] MEDS: Spironolactone 25 MG TAB PO SCH (09:32)
[2021-10-07] MEDS: Cyanocobalamin (Vitamin B-12) 1,000 MCG TAB PO SCH (09:33)
[2021-10-07] MEDS: Apixaban 5 MG TAB PO SCH ×2 (09:33→20:38)
[2021-10-07] MEDS ORDERED: Digoxin 0.5 MG/2 ML AMP SLOW IVP SCH (13:15)
[2021-10-07] MEDS ORDERED: Amiodarone 450 MG in Dextrose 5% in Water 250 ML IVPB SCH (14:45)
[2021-10-07] MEDS: Amiodarone 450 MG, Admixture Fee 1 EACH in Dextrose 5% in Water 250 ML IVPB SCH ×2 (15:11→23:09)
[2021-10-07] MEDS: Atorvastatin Calcium 40 MG TAB PO SCH (20:40)
[2021-10-07] MEDS: Ipratropium Oral Inhaler INH SCH ×2 (20:43→20:48)
[2021-10-08 04:31] LABS: #Lymphocytes 2.7 thou/uL (1.20-3.40); #Monocytes 1.3 thou/uL (0.11-0.59); #Neutrophils 12.4 thou/uL (1.40-6.50); %Eosinophils 0.1 % (0.0-10.0); %Lymphocytes 16.6 % (21.0-51.0); %Monocytes 8.1 % (0.0-10.0); %Neutrophils 75.2 % (42.0-75.0); Hemoglobin 16.2 g/dL (14.0-18.0); Mean Corpuscular HGB CONC 31.8 g/dL (32.0-36.0); Mean Corpuscular Hemoglobin 34.8 pg (27.0-31.0); Mean Platelet Volume 8.5 fL (7.4-10.4); Platelet Count 221 thou/uL (130-400); RBC Distribution Width 13.4 % (11.5-14.5); Red Blood Cell (RBC) Count 4.66 mill/uL (4.70-6.10); White Blood Cell (WBC) Count 16.5 thou/uL (4.8-10.8)
[2021-10-08 04:53] LABS: Anion Gap 14 mmol/L (10-20); BUN (Urea Nitrogen) 53 mg/dL (8.9-20.6); Calc. Creatinine Clearance 114 mL/min (70-130); Calcium 9.9 mg/dL (7.8-10.44); Carbon Dioxide 35 mmol/L (22-29); Chloride 96 mmol/L (98-107); Estimated GFR 42; Glucose 131 mg/dL (70-105); Potassium 4.2 mmol/L (3.5-5.1); Sodium 141 mmol/L (136-145)
[2021-10-08] MEDS: Ipratropium Oral Inhaler INH SCH ×4 (07:20→20:28)
[2021-10-08] MEDS: Zinc Sulfate 220 MG CAP PO SCH (09:53)
[2021-10-08] MEDS: Cyanocobalamin (Vitamin B-12) 1,000 MCG TAB PO SCH (09:53)
[2021-10-08] MEDS: Famotidine 20 MG TAB PO SCH ×2 (09:53→20:28)
[2021-10-08] MEDS: Carvedilol 25 MG TAB PO SCH ×2 (09:53→20:28)
[2021-10-08] MEDS: Sacubitril 49 MG/Valsartan 51 MG TABLET PO SCH ×2 (09:53→20:28)
[2021-10-08] MEDS: Apixaban 5 MG TAB PO SCH ×2 (09:53→20:27)
[2021-10-08] MEDS: Dexamethasone 4 mg/ml Vial SLOW IVP SCH (09:53)
[2021-10-08] MEDS: Spironolactone 25 MG TAB PO SCH (09:53)
[2021-10-08] MEDS: Torsemide 20 MG TAB PO SCH ×2 (09:53→20:28)
[2021-10-08] MEDS: Ascorbic Acid 500 mg Chewable Tablet PO SCH (09:53)
[2021-10-08] MEDS: Benzonatate 100 MG CAP PO SCH ×2 (09:53→20:28)
[2021-10-08] MEDS: Atorvastatin Calcium 40 MG TAB PO SCH (20:27)
[2021-10-08] MEDS: Amiodarone 200 MG TAB PO SCH (20:28)
[2021-10-09] MEDS ORDERED: Guaifenesin DM 100-10/5 ML UDCUP PO PRN (03:49)
[2021-10-09 04:26] LABS: #Lymphocytes 3.1 thou/uL (1.20-3.40); #Monocytes 1.4 thou/uL (0.11-0.59); %Basophils 0.1 % (0.0-1.0); %Eosinophils 0.1 % (0.0-10.0); %Lymphocytes 15.8 % (21.0-51.0); %Monocytes 7.4 % (0.0-10.0); %Neutrophils 76.7 % (42.0-75.0); Hemoglobin 16.2 g/dL (14.0-18.0); Mean Corpuscular HGB CONC 31.8 g/dL (32.0-36.0); Mean Corpuscular Hemoglobin 34.2 pg (27.0-31.0); Mean Platelet Volume 8.6 fL (7.4-10.4); Platelet Count 219 thou/uL (130-400); RBC Distribution Width 13.3 % (11.5-14.5); Red Blood Cell (RBC) Count 4.74 mill/uL (4.70-6.10); White Blood Cell (WBC) Count 19.6 thou/uL (4.8-10.8)
[2021-10-09 04:46] LABS: Anion Gap 15 mmol/L (10-20); BUN (Urea Nitrogen) 53 mg/dL (8.9-20.6); Calc. Creatinine Clearance 106 mL/min (70-130); Calcium 9.8 mg/dL (7.8-10.44); Carbon Dioxide 36 mmol/L (22-29); Chloride 95 mmol/L (98-107); Estimated GFR 39; Glucose 119 mg/dL (70-105); Potassium 4.3 mmol/L (3.5-5.1); Sodium 142 mmol/L (136-145)
[2021-10-09] MEDS: Spironolactone 25 MG TAB PO SCH (09:37)
[2021-10-09] MEDS: Carvedilol 25 MG TAB PO SCH (09:37)
[2021-10-09] MEDS: Ascorbic Acid 500 mg Chewable Tablet PO SCH (09:37)
[2021-10-09] MEDS: Dexamethasone 4 mg/ml Vial SLOW IVP SCH (09:37)
[2021-10-09] MEDS: Apixaban 5 MG TAB PO SCH (09:37)
[2021-10-09] MEDS: Amiodarone 200 MG TAB PO SCH (09:38)
[2021-10-09] MEDS: Zinc Sulfate 220 MG CAP PO SCH (09:38)
[2021-10-09] MEDS: Famotidine 20 MG TAB PO SCH (09:38)
[2021-10-09] MEDS: Benzonatate 100 MG CAP PO SCH (09:38)
[2021-10-09] MEDS: Sacubitril 49 MG/Valsartan 51 MG TABLET PO SCH (09:38)
[2021-10-09] MEDS: Torsemide 20 MG TAB PO SCH (09:38)
[2021-10-09] MEDS: Ipratropium Oral Inhaler INH SCH ×2 (09:39→12:18)
[2021-10-09] MEDS: Cyanocobalamin (Vitamin B-12) 1,000 MCG TAB PO SCH (09:39)
[2021-10-09 12:25] VITALS: BP 105/75
[2021-10-09 15:09] VITALS: TEMP 97.5
== END 2021-10-09 16:14 | disposition home or self-care (01) | DRG 177 ==
LOC: ERS 12:19 → ERHOLD 14:21 → 2NO 17:41
PROVIDERS: ADMIT Hospitalist; ATTEND Hospitalist
PROC: 8E0ZXY6 Isolation (ICD-10-PCS; principal; 2021-10-02)
DX: U07.1 COVID-19 (principal); I50.23 Acute on chronic systolic (congestive) heart failure; J96.00 Acute respiratory failure, unspecified whether with hypoxia or hypercapnia; I13.0 Hypertensive heart and chronic kidney disease with heart failure and stage 1 through stage 4 chronic kidney disease, or unspecified chronic kidney disease; I48.92 Unspecified atrial flutter; I47.2 Ventricular tachycardia; I42.8 Other cardiomyopathies; I42.0 Dilated cardiomyopathy; Z68.43 Body mass index [BMI] 50.0-59.9, adult; N17.9 Acute kidney failure, unspecified; I47.1 Supraventricular tachycardia; E66.01 Morbid (severe) obesity due to excess calories; I48.0 Paroxysmal atrial fibrillation; N18.31 Chronic kidney disease, stage 3a; F17.210 Nicotine dependence, cigarettes, uncomplicated; Z88.8 Allergy status to other drugs, medicaments and biological substances; Z79.01 Long term (current) use of anticoagulants; Z79.899 Other long term (current) drug therapy
CPT/HCPCS: 36415; 36416; 71045; 80048; 80053; 82553; 83735; 83880; 84443; 84484; 85025; 93005; 93010; 93306; 96374; J0153; J0282; J1100; J1160; J1940; J3475; J7070; U0002

== ENCOUNTER 2021-10-22 09:14 | Day surgery (SDC) | payer OTHER ==
[2021-10-18 13:33] VITALS: BMI 48.8
[2021-10-22] MEDS ORDERED: PROPOFOL 20 ML ONE (10:31)
== END 2021-10-22 12:58 | disposition home or self-care (01) ==
LOC: SDC 09:14
PROVIDERS: ATTEND Internal Medicine Cardiovascular Disease
PROC: B246ZZ4 Ultrasonography of Right and Left Heart, Transesophageal (ICD-10-PCS; principal; 2021-10-22)
PROC: 5A2204Z Restoration of Cardiac Rhythm, Single (ICD-10-PCS; principal; 2021-10-22)
DX: I48.92 Unspecified atrial flutter (principal); I48.91 Unspecified atrial fibrillation; I08.1 Rheumatic disorders of both mitral and tricuspid valves; Z79.01 Long term (current) use of anticoagulants; Z79.82 Long term (current) use of aspirin; Z79.899 Other long term (current) drug therapy; Z88.8 Allergy status to other drugs, medicaments and biological substances
CPT/HCPCS: 92960; 93005; 93010; 93312; J2704

== ENCOUNTER 2024-02-06 06:29 | Day surgery (SDC) | payer MEDICARE ==
[2024-02-05 13:17] VITALS: BMI 52.9
[2024-02-06] MEDS ORDERED: Etomidate 40 MG (20 mL) VIAL ONE (08:21)
[2024-02-06] MEDS ORDERED: PROPOFOL 200 MG/20 ML VIAL ONE (08:47)
== END 2024-02-06 09:30 | disposition home or self-care (01) ==
LOC: SDC 06:29
PROVIDERS: ATTEND Internal Medicine Cardiovascular Disease
PROC: 5A2204Z Restoration of Cardiac Rhythm, Single (ICD-10-PCS; principal; 2024-02-06)
DX: I48.0 Paroxysmal atrial fibrillation (principal); I10 Essential (primary) hypertension; I42.0 Dilated cardiomyopathy; I48.91 Unspecified atrial fibrillation; E66.01 Morbid (severe) obesity due to excess calories; Z68.43 Body mass index [BMI] 50.0-59.9, adult; Z86.16 Personal history of COVID-19; F17.210 Nicotine dependence, cigarettes, uncomplicated; Z79.01 Long term (current) use of anticoagulants
CPT/HCPCS: 92960; J2704

== ENCOUNTER 2024-02-10 17:32 | Inpatient (IN) | payer MEDICARE ==
[2024-02-10 18:35] VITALS: BMI 50.8
[2024-02-10] MEDS ORDERED: Acetaminophen 650 MG Suppository PR PRN (19:52)
[2024-02-10] MEDS ORDERED: Ondansetron ODT 4 MG TAB PO PRN (19:52)
[2024-02-10] MEDS ORDERED: Ondansetron PF 4 MG/2 ML Vial IVP PRN (19:52)
[2024-02-10 20:33] LABS: #Basophils Less than 0.03 10x3/uL (0.0-0.2); #Eosinophils Less than 0.03 10x3/uL (0.0-0.7); %Basophils 0.1 % (0.0-1.0); %Lymphocytes 12.7 % (21.0-51.0); %Monocytes 4.2 % (0.0-10.0); %Neutrophils 82.9 % (42.0-75.0); Hematocrit 48.9 % (42.0-52.0); Hemoglobin 15.3 g/dL (14.0-18.0); Mean Corpuscular HGB CONC 31.3 g/dL (32.0-36.0); Mean Platelet Volume 10.6 fL (7.4-10.4); Platelet Count 186 10x3/uL (130-400); RBC Distribution Width 15.4 % (11.5-14.5); Red Blood Cell (RBC) Count 4.94 mill/uL (4.70-6.10)
[2024-02-10 20:50] LABS: ALT (SGPT) 25 U/L (8-55); AST (SGOT) 43 U/L (5-34); Albumin 3.7 g/dL (3.5-5.0); Alkaline Phosphatase 72 U/L (40-110); Anion Gap 16 mmol/L (10-20); BUN (Urea Nitrogen) 38 mg/dL (8.9-20.6); Bilirubin, Total 0.8 mg/dL (0.2-1.2); Calc. Creatinine Clearance 134 mL/min (70-130); Calcium 8.9 mg/dL (7.8-10.44); Carbon Dioxide 30 mmol/L (22-29); Chloride 101 mmol/L (98-107); Estimated GFR 48; Globulin 3.7 g/dL (2.4-3.5); Glucose 140 mg/dL (70-105); Magnesium 2.3 mg/dL (1.6-2.6); Potassium 3.9 mmol/L (3.5-5.1); Protein, Total 7.4 g/dL (6.0-8.3); Sodium 143 mmol/L (136-145)
[2024-02-10 20:57] LABS: Troponin I 0.155 ng/mL (< 0.028)
[2024-02-10] MEDS: Acetaminophen 325 MG TAB PO SCH (20:58)
[2024-02-10] MEDS: Atorvastatin Calcium 20 MG TAB PO SCH (20:59)
[2024-02-10] MEDS: Famotidine 20 MG TAB PO SCH (20:59)
[2024-02-10] MEDS: Carvedilol 25 MG TAB PO SCH (20:59)
[2024-02-10] MEDS: Apixaban 5 MG TAB PO SCH (20:59)
[2024-02-10] MEDS: Famotidine/PF 20 mg/2ml Vial SLOW IVP SCH (21:00)
[2024-02-10] MEDS: methylPREDNISolone Sod Succ 40 MG VIAL IVP SCH (21:00)
[2024-02-10] MEDS: Sacubitril 49 MG/Valsartan 51 MG TABLET PO SCH (22:37)
[2024-02-10] MEDS: Montelukast Sodium 10 mg Tablet PO SCH (22:37)
[2024-02-10] MEDS: Ipratropium/Albuterol 3 ML NEB NEB SCH (22:45)
[2024-02-11 01:04] LABS: Troponin I 0.147 ng/mL (< 0.028)
[2024-02-11] MEDS: Furosemide 40 MG (4 mL) VIAL SLOW IVP SCH (05:44)
[2024-02-11] MEDS: Mometasone 100 MCG/Formoterol 5 MCG 120 PUFF INHALER INH SCH (06:45)
[2024-02-11] MEDS: Aspirin Chewable 81 MG TAB PO SCH (09:25)
[2024-02-11] MEDS: Oseltamivir 75 MG CAP PO SCH ×2 (09:25→20:34)
[2024-02-11] MEDS: Spironolactone 25 MG TAB PO SCH (09:26)
[2024-02-11] MEDS: Methimazole 5 MG TAB PO SCH (09:31)
[2024-02-11 11:09] VITALS: BMI 50.2
[2024-02-11] MEDS: Ipratropium/Albuterol 3 ML NEB NEB PRN (16:46)
[2024-02-12 05:24] LABS: CRP,High Sensitivity (Inhouse) 3.43 mg/dL (< or = 0.5)
[2024-02-12 05:36] LABS: Anion Gap 15 mmol/L (10-20); BUN (Urea Nitrogen) 51 mg/dL (8.9-20.6); Calc. Creatinine Clearance 159 mL/min (70-130); Calcium 9.3 mg/dL (7.8-10.44); Carbon Dioxide 29 mmol/L (22-29); Chloride 101 mmol/L (98-107); Estimated GFR 60; Glucose 125 mg/dL (70-105); Potassium 5.3 mmol/L (3.5-5.1); Sodium 140 mmol/L (136-145)
[2024-02-12] MEDS: methylPREDNISolone Sod Succ 40 MG VIAL IVP SCH (21:12)
[2024-02-12] MEDS: Carvedilol 6.25 MG TAB PO SCH (21:12)
[2024-02-13 04:58] LABS: Anion Gap 12 mmol/L (10-20); BUN (Urea Nitrogen) 41 mg/dL (8.9-20.6); Calc. Creatinine Clearance 179 mL/min (70-130); Calcium 9.2 mg/dL (7.8-10.44); Carbon Dioxide 30 mmol/L (22-29); Chloride 101 mmol/L (98-107); Estimated GFR 69; Glucose 126 mg/dL (70-105); Potassium 4.4 mmol/L (3.5-5.1); Sodium 139 mmol/L (136-145)
[2024-02-13] MEDS ORDERED: Albuterol 200 PUFF INH INH PRN (09:22)
[2024-02-13 15:16] VITALS: BP 136/86; TEMP 98.3
[2024-02-13] MEDS ORDERED: Torsemide 20 MG TAB PO SCH (21:00)
[2024-02-17] MEDS ORDERED: SEMAGLUTIDE 1.7 MG/0.75 ML SQ SCH (09:00)
== END 2024-02-13 16:30 | disposition home or self-care (01) | DRG 280 ==
LOC: 2NO 17:50
PROVIDERS: ADMIT Hospitalist; ATTEND Family Medicine
DX: I11.0 Hypertensive heart disease with heart failure (principal); I50.23 Acute on chronic systolic (congestive) heart failure; I21.A1 Myocardial infarction type 2; J45.901 Unspecified asthma with (acute) exacerbation; Z68.43 Body mass index [BMI] 50.0-59.9, adult; J10.1 Influenza due to other identified influenza virus with other respiratory manifestations; I42.8 Other cardiomyopathies; E87.5 Hyperkalemia; E11.9 Type 2 diabetes mellitus without complications; I48.0 Paroxysmal atrial fibrillation; E66.01 Morbid (severe) obesity due to excess calories; F17.210 Nicotine dependence, cigarettes, uncomplicated; Z88.8 Allergy status to other drugs, medicaments and biological substances; Z79.899 Other long term (current) drug therapy; Z79.01 Long term (current) use of anticoagulants
CPT/HCPCS: 36415; 80048; 83735; 83880; 84145; 86141; 93798; 94640; 94664; J1940; J2919; J7620

== ENCOUNTER 2024-03-11 14:05 | Inpatient (IN) | payer MEDICARE ==
[2024-03-11 15:45] LABS: #Basophils Less than 0.03 10x3/uL (0.0-0.2); %Basophils 0.1 % (0.0-1.0); %Eosinophils 1.8 % (0.0-10.0); %Lymphocytes 29.4 % (21.0-51.0); %Monocytes 10.5 % (0.0-10.0); %Neutrophils 58.1 % (42.0-75.0); Hemoglobin 11.7 g/dL (14.0-18.0); Mean Corpuscular HGB CONC 31.6 g/dL (32.0-36.0); Mean Corpuscular Hemoglobin 30.5 pg (27.0-31.0); Mean Corpuscular Volume 96.4 fL (78.0-98.0); Mean Platelet Volume 10.5 fL (7.4-10.4); Platelet Count 238 10x3/uL (130-400); RBC Distribution Width 14.2 % (11.5-14.5); Red Blood Cell (RBC) Count 3.84 mill/uL (4.70-6.10)
[2024-03-11 15:59] LABS: Acetaminophen Less than 10 mcg/mL (Less than 10); Alcohol Less than 10.0 mg/dL (Less than 10); Salicylate Less than 8.0 mg/dL (Less than 8.0)
[2024-03-11 16:01] LABS: ALT (SGPT) 17 U/L (8-55); AST (SGOT) 20 U/L (5-34); Albumin 2.9 g/dL (3.5-5.0); Alkaline Phosphatase 74 U/L (40-110); Anion Gap 14 mmol/L (10-20); BUN (Urea Nitrogen) 21 mg/dL (8.9-20.6); Bilirubin, Total 0.5 mg/dL (0.2-1.2); CK (CPK) 273 U/L (30-200); Calc. Creatinine Clearance 0 mL/min (70-130); Calcium 9.4 mg/dL (7.8-10.44); Carbon Dioxide 31 mmol/L (22-29); Chloride 100 mmol/L (98-107); Estimated GFR 68; Globulin 4.7 g/dL (2.4-3.5); Glucose 116 mg/dL (70-105); Potassium 3.6 mmol/L (3.5-5.1); Protein, Total 7.6 g/dL (6.0-8.3); Sodium 141 mmol/L (136-145)
[2024-03-11 16:06] LABS: Troponin I 0.021 ng/mL (< 0.028)
[2024-03-11] MEDS ORDERED: Apixaban 5 MG TAB ONE (16:12)
[2024-03-11] MEDS ORDERED: Metoprolol Tartrate 5 MG (5 mL) VIAL ONE ×2 (16:12→18:23)
[2024-03-11] MEDS ORDERED: DAPTOmycin 1,000 MG in Sodium Chloride 0.9% 50 ML IVPB SCH (18:30)
[2024-03-11] MEDS ORDERED: Amiodarone 450 MG, Admixture Fee 1 EACH in Dextrose 5% in Water 250 ML IVPB SCH (18:30)
[2024-03-11] MEDS ORDERED: DAPTOmycin 500 MG VIAL IVPB SCH (18:45)
[2024-03-11] MEDS ORDERED: Ondansetron PF 4 MG/2 ML Vial IVP PRN (18:49)
[2024-03-11] MEDS ORDERED: Albuterol 200 PUFF INH INH PRN (19:15)
[2024-03-11] MEDS ORDERED: Acetaminophen 500 MG TAB ONE (19:41)
[2024-03-11] MEDS ORDERED: Digoxin 0.5 MG/2 ML AMP ONE (19:41)
[2024-03-11] MEDS ORDERED: Atorvastatin Calcium 20 MG TAB PO SCH (21:00)
[2024-03-11 21:52] LABS: Troponin I 0.036 ng/mL (< 0.028)
[2024-03-12 01:56] VITALS: BMI 34.9
[2024-03-12 02:01] LABS: Bacteria/HPF None Seen HPF (None Seen); Bilirubin Negative (Negative); Blood, Urine Negative (Negative); CAUTI Indications for Culture Dysuria,urgency,freq; Clarity Clear (Clear); Glucose, Urine (Dipstick) Normal (Negative); Ketone, Urine Negative (Negative); Leukocyte Negative Leu/uL (Negative); Nitrite Negative (Negative); Protein, Urine (Dipstick) 20 mg/dL (Neg-Trace); RBC/HPF 0-3 HPF (0-3); Specific Gravity, Urine 1.024 (1.002-1.036); Squamous Epithelial 0-3 HPF (0-3); WBC/HPF 0-3 HPF (0-3); pH, Urine 5.5 (5.0-9.0)
[2024-03-12 02:02] LABS: Urine Culture Reflex No No
[2024-03-12 02:08] LABS: Amphetamine Not Detected (NotDetected); Barbiturates Screen Not Detected (NotDetected); Benzodiazepine Screen Not Detected (NotDetected); Cocaine Metabolite Screen Not Detected (NotDetected); Methadone Not Detected (NotDetected); Methamphetamine Not Detected (NotDetected); Opiate Screen Not Detected (NotDetected); Oxycodone Screen Not Detected (NotDetected); Phencyclidine (PCP) Not Detected (NotDetected); THC/Cannabinoid Screen Not Detected (NotDetected); Tricyclic Screen Not Detected (NotDetected)
[2024-03-12 04:18] LABS: #Basophils 0.03 10x3/uL (0.0-0.2); %Basophils 0.4 % (0.0-1.0); %Eosinophils 2.1 % (0.0-10.0); %Lymphocytes 36.5 % (21.0-51.0); %Monocytes 9.8 % (0.0-10.0); %Neutrophils 50.9 % (42.0-75.0); Hematocrit 36.7 % (42.0-52.0); Hemoglobin 11.6 g/dL (14.0-18.0); Mean Corpuscular HGB CONC 31.6 g/dL (32.0-36.0); Mean Corpuscular Hemoglobin 30.4 pg (27.0-31.0); Mean Corpuscular Volume 96.3 fL (78.0-98.0); Mean Platelet Volume 10.3 fL (7.4-10.4); Platelet Count 235 10x3/uL (130-400); RBC Distribution Width 14.3 % (11.5-14.5); Red Blood Cell (RBC) Count 3.81 mill/uL (4.70-6.10)
[2024-03-12] MEDS ORDERED: Amiodarone 150 MG/3 ML VIAL ONE (04:23)
[2024-03-12 04:36] LABS: Anion Gap 13 mmol/L (10-20); BUN (Urea Nitrogen) 20 mg/dL (8.9-20.6); Calc. Creatinine Clearance 152 mL/min (70-130); Calcium 9.4 mg/dL (7.8-10.44); Carbon Dioxide 27 mmol/L (22-29); Chloride 102 mmol/L (98-107); Estimated GFR 87; Glucose 99 mg/dL (70-105); Potassium 3.2 mmol/L (3.5-5.1); Sodium 139 mmol/L (136-145)
[2024-03-12 04:38] LABS: Troponin I 0.036 ng/mL (< 0.028)
[2024-03-12] MEDS ORDERED: Acetaminophen 325 MG TAB ONE ×2 (07:52→18:30)
[2024-03-12] MEDS ORDERED: Potassium Chloride 20 MEQ TAB ONE ×2 (07:52→18:31)
[2024-03-12 07:54] LABS: Hematocrit 35.7 % (42.0-52.0); Hemoglobin 11.4 g/dL (14.0-18.0); Mean Corpuscular HGB CONC 31.9 g/dL (32.0-36.0); Mean Corpuscular Hemoglobin 30.9 pg (27.0-31.0); Mean Corpuscular Volume 96.7 fL (78.0-98.0); Mean Platelet Volume 10.1 fL (7.4-10.4); Platelet Count 228 10x3/uL (130-400); RBC Distribution Width 14.2 % (11.5-14.5); Red Blood Cell (RBC) Count 3.69 mill/uL (4.70-6.10)
[2024-03-12] MEDS: Potassium Chloride 20 MEQ TAB PO SCH (07:54)
[2024-03-12] MEDS: Acetaminophen 325 MG TAB PO PRN (07:54)
[2024-03-12] MEDS ORDERED: Apixaban 5 MG TAB ONE (08:18)
[2024-03-12] MEDS: Apixaban 5 MG TAB PO SCH (08:31)
[2024-03-12] MEDS ORDERED: Spironolactone 25 MG TAB PO SCH (09:00)
[2024-03-12] MEDS: Methimazole 10 MG TAB PO SCH (10:55)
[2024-03-12 13:25] LABS: Free T4 (Free Thyroxine) 1.91 ng/dL (0.70-1.48)
[2024-03-12] MEDS: DAPTOmycin 1,000 MG in Sodium Chloride 0.9% 50 ML IVPB SCH (18:27)
[2024-03-12] MEDS: Amiodarone 450 MG in Dextrose 5% in Water 250 ML IVPB SCH (22:38)
[2024-03-13 06:44] LABS: Anion Gap 12 mmol/L (10-20); BUN (Urea Nitrogen) 18 mg/dL (8.9-20.6); Calc. Creatinine Clearance 145 mL/min (70-130); Calcium 9.5 mg/dL (7.8-10.44); Carbon Dioxide 27 mmol/L (22-29); Chloride 105 mmol/L (98-107); Estimated GFR 83; Glucose 92 mg/dL (70-105); Magnesium 1.7 mg/dL (1.6-2.6); Potassium 3.9 mmol/L (3.5-5.1); Sodium 140 mmol/L (136-145)
[2024-03-13 07:54] LABS: Hematocrit 36.7 % (42.0-52.0); Hemoglobin 11.5 g/dL (14.0-18.0); Mean Corpuscular HGB CONC 31.3 g/dL (32.0-36.0); Mean Corpuscular Hemoglobin 30.3 pg (27.0-31.0); Mean Corpuscular Volume 96.6 fL (78.0-98.0); Mean Platelet Volume 9.9 fL (7.4-10.4); Platelet Count 220 10x3/uL (130-400); RBC Distribution Width 14.1 % (11.5-14.5)
[2024-03-13] MEDS: Sacubitril 24MG/Valsartan 26 MG TAB PO SCH (09:07)
[2024-03-13] MEDS ORDERED: Spironolactone 25 MG TAB PO SCH (09:45)
[2024-03-13 10:28] LABS: Iron 42 ug/dL (65-175); Iron Binding Capacity, Total 190 mcg/dL (261-462)
[2024-03-13] MEDS: Metoprolol Tartrate 50 MG TAB PO SCH (13:27)
[2024-03-14 05:29] LABS: Anion Gap 13 mmol/L (10-20); BUN (Urea Nitrogen) 15 mg/dL (8.9-20.6); Calc. Creatinine Clearance 153 mL/min (70-130); Calcium 9.1 mg/dL (7.8-10.44); Carbon Dioxide 27 mmol/L (22-29); Chloride 104 mmol/L (98-107); Estimated GFR 88; Glucose 91 mg/dL (70-105); Magnesium 1.8 mg/dL (1.6-2.6); Potassium 3.7 mmol/L (3.5-5.1); Sodium 140 mmol/L (136-145)
[2024-03-14 07:40] LABS: Hematocrit 35.8 % (42.0-52.0); Hemoglobin 11.1 g/dL (14.0-18.0); Mean Corpuscular Hemoglobin 30.5 pg (27.0-31.0); Mean Corpuscular Volume 98.4 fL (78.0-98.0); Mean Platelet Volume 10.9 fL (7.4-10.4); Platelet Count 226 10x3/uL (130-400); RBC Distribution Width 14.3 % (11.5-14.5); Red Blood Cell (RBC) Count 3.64 mill/uL (4.70-6.10)
[2024-03-14] MEDS ORDERED: Spironolactone 25 MG TAB PO SCH (08:00)
[2024-03-14] MEDS: Methimazole 10 MG TAB PO SCH (08:28)
[2024-03-14] MEDS: Torsemide 20 MG TAB PO SCH (08:29)
[2024-03-14] MEDS: Metoprolol Tartrate 50 MG TAB PO SCH (13:02)
[2024-03-15 06:56] LABS: Anion Gap 14 mmol/L (10-20); BUN (Urea Nitrogen) 15 mg/dL (8.9-20.6); Calc. Creatinine Clearance 132 mL/min (70-130); Calcium 9.3 mg/dL (7.8-10.44); Carbon Dioxide 26 mmol/L (22-29); Chloride 103 mmol/L (98-107); Estimated GFR 74; Glucose 91 mg/dL (70-105); Magnesium 1.7 mg/dL (1.6-2.6); Potassium 3.9 mmol/L (3.5-5.1); Sodium 139 mmol/L (136-145)
[2024-03-15] MEDS: Methimazole 10 MG TAB PO SCH (08:41)
[2024-03-16] MEDS: Ketorolac Tromethamine 30 MG (1 mL) VIAL IVP SCH (03:47)
[2024-03-16 05:00] LABS: #Basophils Less than 0.03 10x3/uL (0.0-0.2); %Basophils 0.3 % (0.0-1.0); %Eosinophils 2.5 % (0.0-10.0); %Lymphocytes 31.6 % (21.0-51.0); %Monocytes 10.4 % (0.0-10.0); %Neutrophils 55.1 % (42.0-75.0); Hematocrit 36.1 % (42.0-52.0); Hemoglobin 11.3 g/dL (14.0-18.0); Mean Corpuscular HGB CONC 31.3 g/dL (32.0-36.0); Mean Corpuscular Hemoglobin 30.3 pg (27.0-31.0); Mean Corpuscular Volume 96.8 fL (78.0-98.0); Mean Platelet Volume 9.7 fL (7.4-10.4); Platelet Count 210 10x3/uL (130-400); RBC Distribution Width 14.4 % (11.5-14.5); Red Blood Cell (RBC) Count 3.73 mill/uL (4.70-6.10)
[2024-03-16 05:11] LABS: Anion Gap 15 mmol/L (10-20); BUN (Urea Nitrogen) 19 mg/dL (8.9-20.6); Calc. Creatinine Clearance 121 mL/min (70-130); Calcium 9.3 mg/dL (7.8-10.44); Carbon Dioxide 26 mmol/L (22-29); Chloride 102 mmol/L (98-107); Estimated GFR 66; Glucose 88 mg/dL (70-105); Potassium 3.9 mmol/L (3.5-5.1); Sodium 139 mmol/L (136-145)
[2024-03-16] MEDS: Methimazole 10 MG TAB PO SCH ×3 (11:24→22:17)
[2024-03-16] MEDS ORDERED: Methimazole 10 MG TAB PO SCH (11:30)
[2024-03-17] MEDS: HYDROcodone/Acetaminophen 5/325 mg Tablet PO SCH
[2024-03-17 04:54] LABS: #Basophils Less than 0.03 10x3/uL (0.0-0.2); %Basophils 0.2 % (0.0-1.0); %Eosinophils 1.9 % (0.0-10.0); %Lymphocytes 29.8 % (21.0-51.0); %Monocytes 12.2 % (0.0-10.0); %Neutrophils 55.7 % (42.0-75.0); Hematocrit 34.8 % (42.0-52.0); Hemoglobin 10.9 g/dL (14.0-18.0); Mean Corpuscular HGB CONC 31.3 g/dL (32.0-36.0); Mean Corpuscular Hemoglobin 30.7 pg (27.0-31.0); Mean Platelet Volume 10.1 fL (7.4-10.4); Platelet Count 225 10x3/uL (130-400); RBC Distribution Width 14.4 % (11.5-14.5); Red Blood Cell (RBC) Count 3.55 mill/uL (4.70-6.10)
[2024-03-17 05:22] LABS: Anion Gap 14 mmol/L (10-20); BUN (Urea Nitrogen) 25 mg/dL (8.9-20.6); Calc. Creatinine Clearance 158 mL/min (70-130); Calcium 9.1 mg/dL (7.8-10.44); Carbon Dioxide 27 mmol/L (22-29); Chloride 99 mmol/L (98-107); Estimated GFR 64; Glucose 93 mg/dL (70-105); Magnesium 1.7 mg/dL (1.6-2.6); Potassium 3.7 mmol/L (3.5-5.1); Sodium 136 mmol/L (136-145)
[2024-03-17] MEDS ORDERED: Lidocaine 1% PF 5 ML VIAL ONE (12:04)
[2024-03-17] MEDS ORDERED: PROPOFOL 200 MG/20 ML VIAL ONE (12:04)
[2024-03-17] MEDS: Lactated Ringer's 1,000 ML IV SCH (17:17)
[2024-03-18 05:34] LABS: #Basophils Less than 0.03 10x3/uL (0.0-0.2); %Basophils 0.3 % (0.0-1.0); %Eosinophils 1.9 % (0.0-10.0); %Lymphocytes 30.4 % (21.0-51.0); %Neutrophils 54.1 % (42.0-75.0); Hematocrit 33.7 % (42.0-52.0); Hemoglobin 10.6 g/dL (14.0-18.0); Mean Corpuscular HGB CONC 31.5 g/dL (32.0-36.0); Mean Corpuscular Hemoglobin 30.9 pg (27.0-31.0); Mean Corpuscular Volume 98.3 fL (78.0-98.0); Mean Platelet Volume 10.6 fL (7.4-10.4); Platelet Count 223 10x3/uL (130-400); RBC Distribution Width 14.6 % (11.5-14.5); Red Blood Cell (RBC) Count 3.43 mill/uL (4.70-6.10)
[2024-03-18 05:48] LABS: Anion Gap 12 mmol/L (10-20); BUN (Urea Nitrogen) 24 mg/dL (8.9-20.6); Calc. Creatinine Clearance 172 mL/min (70-130); Calcium 8.9 mg/dL (7.8-10.44); Carbon Dioxide 29 mmol/L (22-29); Chloride 105 mmol/L (98-107); Estimated GFR 70; Glucose 104 mg/dL (70-105); Potassium 4.3 mmol/L (3.5-5.1); Sodium 142 mmol/L (136-145)
[2024-03-18] MEDS: HYDROcodone/Acetaminophen 5/325 mg Tablet PO SCH (06:13)
[2024-03-18 13:00] VITALS: BMI 47.5
[2024-03-18 15:47] VITALS: BP 154/63; TEMP 97.7
[2024-03-19] MEDS ORDERED: Torsemide 20 MG TAB PO SCH (09:00)
== END 2024-03-18 17:27 | disposition home or self-care (01) | DRG 309 ==
LOC: ERS 14:05 → ERHOLD 19:02 → OBS 03-12 20:24 → OBSVTOIN 03-12 23:11
PROVIDERS: ADMIT Internal Medicine; ATTEND Hospitalist
PROC: 5A2204Z Restoration of Cardiac Rhythm, Single (ICD-10-PCS; principal; 2024-03-17)
DX: I48.0 Paroxysmal atrial fibrillation (principal); I50.22 Chronic systolic (congestive) heart failure; N17.9 Acute kidney failure, unspecified; R78.81 Bacteremia; Z68.42 Body mass index [BMI] 45.0-49.9, adult; I42.8 Other cardiomyopathies; E05.90 Thyrotoxicosis, unspecified without thyrotoxic crisis or storm; E66.01 Morbid (severe) obesity due to excess calories; E87.6 Hypokalemia; Z88.8 Allergy status to other drugs, medicaments and biological substances; Z79.899 Other long term (current) drug therapy; Z79.01 Long term (current) use of anticoagulants; Z87.891 Personal history of nicotine dependence
CPT/HCPCS: 36415; 71045; 80048; 80053; 80306; 80307; 81001; 82550; 82728; 83540; 83550; 83605; 83735; 83880; 84439; 84443; 84481; 84484; 85025; 85027; 87040; 87086; 87428; 92960; 93005; 96374; 96375; 96376; J0282; J0878; J1160; J1885; J2704; J7070; J7120